=== PATIENT | male | born 1995 | race Two or more races ===

== ENCOUNTER 2017-11-13 00:01 | Inpatient (IN) | payer OTHER ==
[~2017-11-13] VITALS: Ht 188 cm; Wt 83.9 kg
[2017-11-13 00:13] VITALS: BP 140/74
--- NOTE | 2017-11-13 00:31 | NUR ---
PRE-ADMISSION VS BP-140/74 T-98.0 P-87 R- 15 PA-0/10 . SpO2 AT 99% IN RA. PATIENT CAME IN WITH THE FATHER . PATIENT NOTED SEDATED, DOZES OFF DURING QUESTIONING, SPEECH IS SLURRED AND DELAYED IN RESPONSE. HE DOES NOT HAVE ALLERGIES TO MEDICATION OR FOOD. PATIENT CAME IN THE UNIT AT 0031 IN A WHEELCHAIR. BODY CHECK DONE, SKIN INTACT. HEIGHT IS 6'2 AND 185 LBS. PATIENT STATES HE'S HERE FOR BENZODIAZEPINES. HE USES KLONOPIN 9 MG DAILY FOR 5 WEEKS , LAST USE 12 MG ON 11/12/17 AND XANAX 10MG OR MORE DAILY FOR 5 WEEKS. LAST USE WAS 10-20 MG PRIOR TO ADMISSION . HE HAS SEIZURE HISTORY-LAST ONE WAS 2 YEARS AGO DUE TO BENZO WITHDRAWAL. PATIENT SOMNOLENT AND UNABLE TO PROVIDE ACCURATE INFORMATION AT THIS TIME. WILL ASSESS PATIENT WHEN ALERT AND ORIENTED. SAFETY MEASURES IN PLACE. CALL LIGHT IN REACH. ON 1:1 FOR SAFETY .
[2017-11-13] MEDS ORDERED: MAGNESIUM HYDROXIDE 30 ML LIQUID UDC PO PRN (00:45)
[2017-11-13] MEDS ORDERED: ONDANSETRON ODT 4 MG TAB.RAPDIS SL PRN (00:45)
[2017-11-13] MEDS ORDERED: MAG HYDROX/AL HYDROX/SIMETH 30 ML LIQUID UDC PO PRN (00:45)
[2017-11-13] MEDS ORDERED: ACETAMINOPHEN 325 MG TABLET PO PRN (00:45)
[2017-11-13] MEDS ORDERED: LORAZEPAM 2 MG/1 ML VIAL IM PRN (00:45)
[2017-11-13] MEDS ORDERED: LOPERAMIDE HCL 2 MG CAPSULE PO PRN ×2 (00:45)
[2017-11-13] MEDS ORDERED: DIAZEPAM 10 MG TABLET PO PRN (00:45)
[2017-11-13] MEDS ORDERED: diphenhydrAMINE 50 MG CAPSULE PO PRN (00:45)
[2017-11-13] MEDS ORDERED: CLONIDINE HCL 0.1 MG TABLET PO PRN (00:45)
[2017-11-13] MEDS ORDERED: DIAZEPAM 5 MG TABLET PO PRN (00:45)
[2017-11-13] MEDS ORDERED: ONDANSETRON 4 MG/2 ML VIAL IM PRN (00:45)
[2017-11-13] MEDS ORDERED: DICYCLOMINE HCL 20 MG TABLET PO PRN (00:45)
[2017-11-13 01:45] LABS: *AMPHETAMINE, URINE NEGATIVE (NEGATIVE); *BARBITURATE, URINE POSITIVE (NEGATIVE); *CANNABINOID, URINE NEGATIVE (NEGATIVE); *COCCAINE, URINE POSITIVE (NEGATIVE); *OPIATE, URINE POSITIVE (NEGATIVE); *PHENCYCLIDINE SCREEN,URINE NEGATIVE (NEGATIVE)
[2017-11-13 04:00] VITALS: BP 122/65
[2017-11-13] MEDS: DIAZEPAM 10 MG TABLET PO PRN ×2 (06:13→09:21)
[2017-11-13] MEDS: IBUPROFEN 600 MG TABLET PO PRN (06:13)
--- NOTE | 2017-11-13 06:13 | NUR ---
PRN VALIUM/MOTRIN ADMINISTRATION PATIENT WOKE AND STATES HE DOES NOT FEEL GOOD, PATIENT MODERATELY ANXIOUS, IRRITABLE, SWEATING, FINE TREMORS NOTED, AGITATED , RESTLESS LEGS AND MUSCLE ACHES . WILL MONITOR FOR EFFECTIVENESS Addendum: 11/13/17 at 0629 by MIGUEL ARCOS LVN CICI Cazares.
--- NOTE | 2017-11-13 07:13 | NUR ---
PRN VALIUM/MOTRIN RE-ASSESSMENT PATIENT IN BED WITH EYES CLOSED. ON 1:1 FOR SAFETY. WILL CONTINUE TO MONITOR
--- NOTE | 2017-11-13 07:27 | NUR ---
END OF SHIFT NOTE PATIENT SLEPT 5 HOURS. FLUID INTAKE 30ML. VOIDED X 2 .NO BM. LAST CIWA 11. PATIENT WAS GIVEN PRN VALIUM AND MOTRIN. PATIENT WOKE UP AND STATED HE DOES NOT FEEL GOOD, PATIENT MODERATELY ANXIOUS, IRRITABLE, SWEATING, FINE TREMORS NOTED, AGITATED , RESTLESS LEGS AND MUSCLE ACHES. PATIENT RE-ASSESSED TO CONTINUE ADMISSION PROCESS BUT STATES HE WANTS TO GO BACK TO SLEEP. PATIENT WAS ASKED REGARDING URINE DRUG SCREEN BEING POSITIVE OF OPIATES, BARBITURATES AND COCAINE BUT PATIENT DENIES USING THESE SUBSTANCES, HE STATES HE ONLY USED KLONOPIN AND XANAX. CONTINUE ON 1:1 FOR SAFETY. SAFETY MEASURES IN PLACE. CALL LIGHT IN REACH. WILL CONTINUE TO MONITOR. LAST CI.
[2017-11-13 08:00] VITALS: BP 112/70
[2017-11-13] MEDS: MULTIVITAMINS,THERAPEUTIC TABLET PO SCH (09:21)
[2017-11-13] MEDS: FOLIC ACID 1 MG TABLET PO SCH (09:21)
--- NOTE | 2017-11-13 09:21 | NUR ---
PRN VALIUM Patient's CIWA was 13. PRN valium 10mg po tab given. Will continue to monitr patient.
--- NOTE | 2017-11-13 09:21 | NUR ---
START OF SHIFT Received report from power and recovery shift engineer nurse. Patient is 22 year old male admitted for medically supervised withdrawal from heroin and alprazolam. Patient is full code with NKA. On assessment this AM: CIWA 13 and COWS: 12. Denies SOB, chest pain. Patient reports anxiety, noted agitation, nausea, tremors, sweating. PRN valium given (CIWA 13). Patient was provided with campus safety officer upon arrival on the haddad on previous shift for safety unsteady gait for further evaluation this shift. Admission interview was done with patient.
--- NOTE | 2017-11-13 10:21 | NUR ---
REASSESSMENT PRN VALIUM Patient's CIWA 9.
[2017-11-13] MEDS ORDERED: NICOTINE POLACRILEX 4 MG GUM-PK OF TEN BC PRN (10:30)
[2017-11-13] MEDS ORDERED: NICOTINE 14 MG/24HR PATCH TD PRN (10:30)
[2017-11-13] MEDS ORDERED: BUPRENORPHINE HCL 2 MG TAB.SUBL SL PRN (11:00)
--- NOTE | 2017-11-13 11:00 | NUR ---
ADMISSION NOTE: Patient is 22yo male admitted for supervised heroin and alprazolam withdrawal. Alert and oriented X4, full code, with NKA. Denies SOB and chest pain. Patient reports history of bipolar history, last seizure was 2 years ago. oil house attendant at bedside for unsteady gait. Denies suicidal and homicidal ideation. CIWA = 13 and COWS 12. Patient reports symptoms such as anxiety, agitation, tremors, nausea and sweating. Patient has no PCP at this time. Substance use history per patient report: 1) Klonopin - pt. reports last use was 11/12/17, used 9mgs, for 5 weeks 2) Xanax - pt. reports last use was 11/12/17, used 10 10-20mg, for 5 weeks 3) Heroin (IV) pt. reports last use was 11/12/17, used 1-2g, for 5 weeks 4) Meth (IV) pt. reports last use was 11/12/17, used 0.5g, for 5 weeks
[2017-11-13] MEDS: DIAZEPAM 10 MG TABLET PO SCH ×4 (11:10→20:12)
[2017-11-13 12:00] VITALS: BP 110/66
[2017-11-13 12:22] LABS: ETHANOL < 3 MG/DL (0-0)
[2017-11-13 12:23] LABS: ALANINE AMINOTRANSFERASE 33 U/L (16-63); ALKALINE PHOSPHATASE 65 U/L (50-136); AMYLASE 29 U/L (25-115); ASPARTATE AMINOTRANSFERASE 41 U/L (15-37); BILIRUBIN,TOTAL 0.4 mg/dL (0.2-1.0); CARBON DIOXIDE 25 mmol/L (21-32); CHLORIDE 105 mmol/L (98-107); GLUCOSE 82 mg/dL (74-106); LIPASE 86 U/L (73-393); MAGNESIUM 1.9 mg/dL (1.8-2.4); POTASSIUM 3.6 mmol/L (3.5-5.1); UREA NITROGEN, BLOOD 8 mg/dL (7-18)
[2017-11-13 12:23] LABS: BASOPHILS % (AUTO) 0.3 % (0.0-2.0); HEMATOCRIT 37.8 % (36.7-47.1); HEMOGLOBIN 12.9 g/dL (12.5-16.3); LYMPHOCYTES # (AUTO) 1.6 K/uL (20.0-40.0); LYMPHOCYTES % (AUTO) 34.7 % (20.5-51.5); MEAN CORPUSCULAR HEMOGLOBIN 27.4 uug (23.8-33.4); MEAN CORPUSCULAR HGB CONC 34 g/dL (32.5-36.3); MEAN CORPUSCULAR VOLUME 80.3 fL (73.0-96.2); MONOCYTES # (AUTO) 0.3 K/uL (2.0-10.0); MONOCYTES % (AUTO) 6.8 % (0.0-11.0); NEUTROPHILS # (AUTO) 2.7 K/uL (1.8-8.9); NEUTROPHILS % (AUTO) 57.2 % (38.5-71.5); PLATELET COUNT (AUTO) 237 K/uL (152-348); RED BLOOD CELL COUNT(AUTO) 4.71 MIL/uL (4.06-5.63); WHITE BLOOD COUNT (AUTO) 4.7 K/uL (3.6-10.2)
[2017-11-13 12:33] LABS: THYROID STIMULATING HORMONE 0.105 mIU/mL (0.358-3.740)
[2017-11-13] MEDS: BUPRENORPHINE HCL 2 MG TAB.SUBL SL SCH ×3 (14:54→20:13)
[2017-11-13 16:00] VITALS: BP 117/63
--- NOTE | 2017-11-13 19:13 | NUR ---
START OF SHIFT NOTE: Patient is a 22 year old male, admitted to [facility] on 11/13/2017 for Benzodiazepines, Opioid, and Methamphetamines dependence. Patient continue 5 Day Valium and 5 Day Subutex Taper which tolerated well without ASE. Patient remains compliant with treatment, medications, and diet regime. Patient reports NKA. Patient is on Full code, Regular Diet, Fall and Seizures Precautions. PMH: Anxiety, Depression, Bipolar Disorder, Seizures History, Surgery on" Elbow and fingers". MRSA done and sent to lab by day shift nurse. Upon endorsement, patient is in his room resting on the bed alert and oriented x4. VSWNL. COWS 14, CIWA 27. Patient presented with moderate anxiety, moderately fidgety, agitation, nervousness, depression, sweating, runny nose, teary eyes, and severe tremors. Doctor MD Serenity aware. Respirations are even and unlabored. Lung Sounds are clear throughout. Patient denied SOB and chest pain. Heart rate is regular, no murmur noted. Bowel Sounds are active in all four quadrants. Abdomen is soft and non-tender. Skin is intact, warm, and dry to touch. All needs met. Safety measures on place. Call light within reach, bed in lowest position and locked, padded rails up bilaterally rails up bilaterally. Patient endorsed by day shift nurse. Report received. Will continue to monitor closely.
--- NOTE | 2017-11-13 19:13 | NUR ---
END OF SHIFT Patient is 22 year old male admitted for medically supervised withdrawal from heroin and alprazolam. Patient is full code with NKA. Patient on Valium and Subutex taper which were started today. Most recent CIWA: 12 and COWS: 9. Patients vitals signs WNL. Patient reports anxiety, tremors, stuffy nose, chills, body aches, tactile disturbances and mild nausea. Compliant with meds this shift. PRN Valium 10mg po given at 09:21am for CIWA 13, recheck was 9. Patient was too sleepy for the 13:00pm valium and Subutex doses, MD aware. Patient agreed to take it 14:54pm. Patient has poor appetite, refuses his meals, prefers to eat snacks at this time. night warehouse selectornight warehouse selector will continue to monitor patient.
[2017-11-13 20:00] VITALS: BP 115/61
[2017-11-13] MEDS: QUETIAPINE FUMARATE 200 MG TABLET PO SCH (20:12)
[2017-11-13] MEDS: GABAPENTIN 300 MG CAPSULE PO SCH (20:12)
[2017-11-13] MEDS ORDERED: KETOROLAC TROMETHAMINE 30 MG INJ IM PRN (20:45)
--- NOTE | 2017-11-13 20:51 | NUR ---
PRN VALIUM 20 MG PO ADMINISTRATION CIWA 27. PRN Valium 20 mg PO administrated as ordered. Patient tolerated well. All needs met. Safety measures on place. Call light within reach, bed in lowest position and locked, padded rails up bilaterally rails up bilaterally. Will continue to monitor closely.
--- NOTE | 2017-11-13 20:51 | NUR ---
MD Communication CIWA 27, Pt is very restless, skin flushed & noted with sweat, frequently shifting in bed, emotional with reports of body aches 07/22. MD notified, with new orders given. Toradol 30mg injection administered, along with Valium 20mg PRN - medications administered per MD orders. Will continue to monitor.
--- NOTE | 2017-11-13 21:19 | NUR ---
PRN TORADOL 30 MG/1 ML IM ADMINISTRATION Patient c/o left arm pain "9/10"and asked aid. PRN Toradol Inj 30 mg/1 ml IM on the Left Deltoid Muscle administrated as ordered. Patient tolerated well. All needs met. Safety measures on place. Call light within reach, bed in lowest position and locked, padded rails up bilaterally rails up bilaterally. Will continue to monitor closely.
--- NOTE | 2017-11-13 21:51 | NUR ---
RE-ASSESSMENT CIWA 9. PRN VALIUM PO AND PRN TORADOL IM WERE EFFECTIVE.
[2017-11-14] VITALS: BP 106/59
[2017-11-14 04:00] VITALS: BP 105/64
--- NOTE | 2017-11-14 07:02 | NUR ---
END OF SHIFT NOTE: Patient is a 22 year old male, admitted to [facility] on 11/13/2017 for Benzodiazepines, Opioid, and Methamphetamines dependence. Patient continue 5 Day Valium and 5 Day Subutex Taper which tolerated well without ASE. Patient remains compliant with treatment, medications, and diet regime. Patient reports NKA. Patient is on Full code, Regular Diet, Fall and Seizures Precautions. PMH: Anxiety, Depression, Bipolar Disorder, Seizures History, Surgery on" Elbow and fingers". Last COWS 7, CIWA 8 @0400. Patient presented with mild anxiety, agitation, nervousness, restlessness, barely sweating, BODY ACHES, nasal stuffy/moist eyes, and tremors. COWS/CIWA taken when patient's awake during night. Last VS @0400: T:98.1, BP: 105/64, HR:60, RR:16, RA O2Sat:99%, pain level:"0/10". Patient denies SI/HI. Respirations unlabored and even. Skin is intact, warm and dry to touch. PRN Valium 20 mg PO for CIWA 27 administrated @2151 and PRN Toradol IM for pain administrated @2119 were effective. Patient slept 7 hours, intake 1,450 ml, voided x3. Encouraged fluids intake as tolerated. Encouraged to attend groups activities. Safety measures in place: Call Light in reach, bed low, and locked, padded side rails up bilaterally. Needs attended. Patient endorsed to day shift nurse, report given.
--- NOTE | 2017-11-14 07:45 | NUR ---
START OF SHIFT PT IS A 22Y/O M ADMITTED FOR MEDICALLY SUPERVISED BENZO, OPIATE, METH W/D. PT RECEIVED PT LAYING IN BED SLEEPING, RESPIRATIONS EVEN AND UNLABORED. SIDE RAILS UPX2 AND PADDED. ALL SAFETY MEASURES IN PLACE. CALL LIGHT WITHIN REACH. WILL CONTINUE TO MONITOR.
[2017-11-14 08:00] VITALS: BP 93/43
[2017-11-14] MEDS ORDERED: TUBERCULIN,PURIF.PROT.DERIV. 5 TU/0.1 ML TEST ID ONE (09:00)
[2017-11-14] MEDS ORDERED: DIAZEPAM 10 MG TABLET PO SCH (09:00)
[2017-11-14] MEDS: MULTIVITAMINS,THERAPEUTIC TABLET PO SCH (09:29)
[2017-11-14] MEDS: FOLIC ACID 1 MG TABLET PO SCH (09:29)
[2017-11-14] MEDS: GABAPENTIN 300 MG CAPSULE PO SCH ×3 (09:29→21:35)
--- NOTE | 2017-11-14 09:30 | NUR ---
PT IS AWAKE, ORIENTED X3, RESPIRATIONS EVEN AND UNLABORED. PT REPORTS HAVING CHILLS, SWEATING, ANXIETY, GENERALIZED BODY ACHES STOMACH CRAMPS AND RESTLESSNESS. PT HAS A FLAT EFFECT, APPEARS ANXIOUS, DEPRESSED. TREMORS AND PILOERECTION OF SKIN SEEN. DENIES N/V/D. COWS 12 CIWA 8.
[2017-11-14] MEDS: BUPRENORPHINE HCL 2 MG TAB.SUBL SL SCH ×3 (09:35→21:36)
[2017-11-14 12:00] VITALS: BP 108/66
[2017-11-14 12:09] LABS: HEPATITIS B SURFACE AG Negative (Negative)
[2017-11-14] MEDS: METHOCARBAMOL 750 MG TABLET PO PRN (12:25)
--- NOTE | 2017-11-14 12:25 | NUR ---
PRN ROBAXIN 750 MG PO PRN GIVEN FOR CRAMPS AND GENERALIZED BODY ACHES 8/10 PAIN. WILL CONTINUE TO MONITOR.
[2017-11-14] MEDS: DIAZEPAM 10 MG TABLET PO SCH ×3 (12:26→21:34)
--- NOTE | 2017-11-14 13:10 | NUR ---
PRN ZOFRAN 4 MG SL PRN GIVEN FOR NAUSEA. WILL MONITOR FOR EFFECTIVENESS.
--- NOTE | 2017-11-14 13:25 | NUR ---
REASSESSMENT PT REPORTED MEDICATION WAS EFFECTIVE FOR MUSCLE CRAMPS AND BODY ACHES. WILL CONTINUE TO MONITOR.
--- NOTE | 2017-11-14 13:40 | NUR ---
REASSESSMENT PT REPORTED ZOFRAN WAS EFFECTIVE FOR HIS NAUSEA AND HAS CEASED. WILL CONTINUE TO MONITOR.
[2017-11-14 16:00] VITALS: BP 119/77
--- NOTE | 2017-11-14 17:02 | NUR ---
Client was prompted by therapist to attend daily group sessions. Client stated that he would attend the next group.
--- NOTE | 2017-11-14 18:52 | NUR ---
END OF SHIFT PT IS A/O X4, RESPIRATIONS EVEN AND UNLABORED. PT HAS A FLAT EFFECT, APPEARS ANXIOUS, DEPRESSED, AND WITHDRAWN. PT REPORTS HAVING CHILLS, SWEATING, HOT FLASHES, ANXIETY, GENERALIZED BODY ACHES, NAUSEA, STOMACH CRAMPS AND RESTLESSNESS. PT REPORTS HAVING AUDITORY HALLUCINATIONS; PT STATES, I HEAR SWOOSHING NOISES AND SCRATCHING SOUNDS. TREMORS AND PILOERECTION OF SKIN SEEN. DENIES N/V/D. COWS 8 CIWA 7 AT 1600. ENCOURAGED PT TO INCREASE FLUIDS FOR HYDRATION. SIDE RAILS UPX2, BED IS IN LOWEST POSITION. CALL LIGHT WITHIN REACH. ALLSAFETY MEASURES IN PLACE. WILL GIVE ALL PERTINENT INFO AND ENDORSEMENT TO SLIDE FASTENERS INSPECTOR NURSE.
--- NOTE | 2017-11-14 19:15 | NUR ---
START OF SHIFT Received 22 year old male patient admitted on 11/13/17 for Klonopin, Xanax, Heroin IV and Meth IV dependency. Pt is full code with NKA. He reports a PMHx of seizure 2 years ago d/t benzo withdrawal. Surgery on elbow and fingers, bipolar and hep C +. He reports using Klonopin 9 mg daily for 5 weeks. Last dose was 12 mg on 11/12/17. Xanax 10 mg daily for 5 weeks. Last dose 10-20 mg on 11/12/17. Heroin IV 1-2 grams daily for 5 weeks. Last dose was 1-2 grams on 11/12/17. and Meth IV 0.5 grams daily for 5 weeks. Last dose was 0.5 gram on 11/12/17. Pt currently receiving 5 day Valium and 5 day Subutex taper and tolerating well. Per endorsement, pt received PRN Robaxin and Zofran. Pt currently in room sleeping but able to respond to nurses greeting. Safety measures in place. Will continue to monitor.
[2017-11-14 20:00] VITALS: BP 113/72
[2017-11-14] MEDS: CLONIDINE HCL 0.1 MG TABLET PO SCH (21:34)
[2017-11-14] MEDS: QUETIAPINE FUMARATE 200 MG TABLET PO SCH (21:34)
[2017-11-14] MEDS: BACLOFEN 10 MG TABLET PO SCH (21:35)
[2017-11-15] VITALS: BP 120/68
[2017-11-15 04:00] VITALS: BP 108/62
--- NOTE | 2017-11-15 07:00 | NUR ---
END OF SHIFT Pt is lying in bed with eyes closed and is asleep. He continues on a 5 day Valium and 5 day Subutex taper. He did not receive or request any PRN medications. He slept a total of 9hrs, Intake: 793mL, Void: x1, BM:0, COWS:6, CIWA:5. He continues to be alert and oriented x4 with no significant changes. Breathing is even and unlabored. Safety measures in place. Endorsed to AM shift.
--- NOTE | 2017-11-15 07:29 | NUR ---
Start of shift note; Received report from night nurse. Patient is a 22 year old male admitted on 11/13/17 for Benzodiazepine/ Opiate/Methamphetamine. Patient reported history of seizures d/t benzodiazepine withdrawals, surgery, bipolar disorder and hepatitis C. Patient is on 5 day Valium and 5 day Subutex taper, no adverse reactions. All safety measures secured. Patient had uneventful night. Will continue to monitor patient.
[2017-11-15 08:00] VITALS: BP 98/63
[2017-11-15] MEDS: FOLIC ACID 1 MG TABLET PO SCH (08:56)
[2017-11-15] MEDS: GABAPENTIN 300 MG CAPSULE PO SCH ×3 (08:56→22:15)
[2017-11-15] MEDS: MULTIVITAMINS,THERAPEUTIC TABLET PO SCH (08:56)
[2017-11-15] MEDS: BACLOFEN 10 MG TABLET PO SCH ×2 (08:56→22:15)
[2017-11-15] MEDS: DIAZEPAM 10 MG TABLET PO SCH ×3 (08:56→22:15)
[2017-11-15] MEDS: CLONIDINE HCL 0.1 MG TABLET PO SCH ×2 (08:57→21:00)
[2017-11-15] MEDS ORDERED: BUPRENORPHINE HCL 2 MG TAB.SUBL SL SCH (09:00)
[2017-11-15] MEDS ORDERED: DIAZEPAM 5 MG TABLET PO SCH (09:00)
[2017-11-15] MEDS ORDERED: HYDROXYZINE PAMOATE 25 MG CAPSULE PO PRN (09:00)
--- NOTE | 2017-11-15 09:35 | NUR ---
Report given; Detailed report given to covering nurse. Patient is AOX4, last COWS is 8 and last CIWA is 5 at 0800. All morning medications given as ordered. All safety measures secured. Endorsed patient to covering nurse.
--- NOTE | 2017-11-15 09:36 | NUR ---
Endorsement of Patient Security Systems Installer received report/endorsement on 22 year old male admitted to [facility] on 11/13/17 for Benzodiazepine, Heroin and Methamphetamine detoxification. Pt reports NKDA, full code and eats a regular diet. Pt reports PMH of Hep C, bipolar and a withdrawal related seizure 2 years ago. Pt currently on a Valium and Subutex taper, tolerating well. Last COWS 8, CIWA 5 as per report. Pt was negative for MRSA. No PRN medication provided. Security Systems Installer encounters pt in room resting with eyes closed and even, unlabored respirations. Rise and fall of chest noted. Bed in low position, wheels locked and side rails up x2. Will continue to monitor, support and encourage according to plan of care.
[2017-11-15 12:13] VITALS: BP 100/54
[2017-11-15] MEDS: BUPRENORPHINE HCL 2 MG TAB.SUBL SL SCH ×2 (15:33→22:15)
[2017-11-15] MEDS: MIRALAX 17 GM POWD.PACK PO PRN (16:44)
[2017-11-15 16:45] VITALS: BP 117/69
--- NOTE | 2017-11-15 16:45 | NUR ---
PRN Miralax Pt complains of constipation, with no bowel movement in 3 days, " it's that damn Subutex, clogged me up." Admission Discharge Rn administered medication per MD order with pt tolerating well. Pt educated on need to keep staff aware of bowel movements. Will continue to monitor, support and encourage according to plan of care.
--- NOTE | 2017-11-15 17:45 | NUR ---
PRN Re-Assessment Pt reports, no BM. Pt educated on importance of keeping staff aware of BM and need for continued monitoring. Will continue to monitor, support and encourage according to plan of care.
--- NOTE | 2017-11-15 19:08 | NUR ---
End of Shift Human Projectile provided report on 22 year old male admitted to [facility] on 11/13/17 for Benzodiazepine, Heroin and Methamphetamine detoxification. Pt reports NKDA, full code and eats a regular diet. Pt reports PMH of bipolar and a withdrawal related seizure 2 years ago. Pt has tested positive for Hep C anti-bodies, awaiting further testing. Pt concerned he may have Hep C. Pt currently on a Valium and Subutex taper, tolerating well. Last COWS 5, CIWA 4 recorded at 1600. Pt was negative for MRSA. Pt was administered Miralax at 1630 for complaints of constipation with no BM for 3 days. Pt is bright and social with peers and staff. Makes needs known and can be direct, assertive, but polite and pleasant with functional tester typewriters. A/O x4. Bed in low position, wheels locked and side rails up x2.
--- NOTE | 2017-11-15 19:11 | NUR ---
Start of shift note Received report from day shift nurse. Pt is a 22 yo male, A+Ox4, presenting to [facility] for Benzo/Opiate/Meth dependence. Pt has NKA, is on Full code status, and on Regular diet. Pt is on Fall and Seizure precautions. Pt has HX of Seizure, Hep C, Elbow and fingers SX's, and Bipolar disorder. Pt is on 5 day Valium and 5 day Subutex tapers, tolerated well. No s/s of distress noted at this time. Respirations even and unlabored. Will continue to monitor.
[2017-11-15 20:18] VITALS: BP 136/78
[2017-11-15] MEDS: QUETIAPINE FUMARATE 200 MG TABLET PO SCH (22:14)
[2017-11-16 00:25] VITALS: BP 130/74
[2017-11-16 04:39] VITALS: BP 124/72
--- NOTE | 2017-11-16 06:56 | NUR ---
End of shift note Pt is a 22 yo male, A+Ox4, presenting to [facility] for Benzo/Opiate/Meth dependence. Pt has NKA, is on Full code status, and on Regular diet. Pt is on Fall and Seizure precautions. Pt has HX of Seizure, Hep C, Elbow and fingers SX's, and Bipolar disorder. Pt is on 5 day Valium and 5 day Subutex tapers, tolerated well. Pt slept for a total of 7 HRS. Last COWS: 3 and Last CIWA: 2 @0400. No s/s of distress noted at this time. Respirations even and unlabored. Will endorse to day shift nurse.
--- NOTE | 2017-11-16 07:26 | NUR ---
Start of shift- Pt is a 22 y/o male presenting to [facility] for Benzo/Opiate/Meth dependence. No s/s of distress noted at this time. Pt appears to be sleeping in bed. Respirations even and unlabored. Pt slept 7 hours last night. At 0400 last COWS 3, CIWA 2. NKA, Full code and Regular diet. Pt is on Fall and Seizure precautions. Pt has HX of Seizure, Hep C, Elbow and fingers SX's, and Bipolar disorder. MRSA lab negative. Pt is on 5 day Valium and 5 day Subutex tapers started on 11/13/17, tolerating well. Safety measures in place. Will continue to monitor.
[2017-11-16 08:00] VITALS: BP 104/54
[2017-11-16] MEDS: GABAPENTIN 300 MG CAPSULE PO SCH ×3 (09:41→20:16)
[2017-11-16] MEDS: CLONIDINE HCL 0.1 MG TABLET PO SCH ×2 (09:42→20:14)
[2017-11-16] MEDS: BACLOFEN 10 MG TABLET PO SCH ×2 (09:43→20:14)
[2017-11-16] MEDS: DIAZEPAM 5 MG TABLET PO SCH ×3 (09:43→20:15)
[2017-11-16] MEDS: FOLIC ACID 1 MG TABLET PO SCH (09:43)
[2017-11-16] MEDS: MULTIVITAMINS,THERAPEUTIC TABLET PO SCH (09:43)
[2017-11-16] MEDS: MIRALAX 17 GM POWD.PACK PO PRN (09:43)
[2017-11-16] MEDS: BUPRENORPHINE HCL 2 MG TAB.SUBL SL SCH ×3 (09:43→20:15)
--- NOTE | 2017-11-16 09:48 | NUR ---
PRN Miralax 17 gm PO for constipation.
--- NOTE | 2017-11-16 09:56 | NUR ---
Therapist prompted client about group times. Client stated he would try to attend all groups today.
[2017-11-16 12:00] VITALS: BP 122/80
[2017-11-16] MEDS: METHOCARBAMOL 750 MG TABLET PO PRN (12:58)
--- NOTE | 2017-11-16 12:59 | NUR ---
PRN Catapres 0.1mg PO for anxiety, Robaxin 750 mg po for myalgias. COWS 8, CIWA 9
--- NOTE | 2017-11-16 14:00 | NUR ---
Reasses- Pt reports minimal anxiety relief from Catapres. Myalgia relief from Baclofen, and Pt states he is feeling a little better. [facility] 7, CIWA7. Addendum: 11/16/17 at 1808 by Shira Shipley RN Myalgia relief from Robaxin, not Baclofen. at 1400
--- NOTE | 2017-11-16 15:45 | NUR ---
Alfreda Lawton, Pt had BM, soft, formed brown.
[2017-11-16 16:00] VITALS: BP 147/82
--- NOTE | 2017-11-16 18:39 | NUR ---
End of shift note- Pt is a 22 y/o male presenting to [facility] for Benzo/Opiate/Meth dependence. Pt A&O x4. Pt on 5 day Valium and Subutex taper, started on 11/13/17, tolerating well. PRN Robaxin and Catapres given at 1200 with minimal effect. TB test read and was negative. At 1600 last COWS 5, CIWA 4. NKA, Full code and Regular diet. Pt is on Fall and Seizure precautions. Pt has HX of Seizure, Hep C, Elbow and fingers SX's, and Bipolar disorder. Adequate PO fluid intake of 3843 ml, voids X 4, BM X1. Safety measures in place. Safety measures in place. Bed lowest/locked position, side rails up X2/padded, call light within reach. Will endorse to oncoming nurse.
[2017-11-16 20:01] VITALS: BP 125/64
--- NOTE | 2017-11-16 20:05 | NUR ---
Start of Shift: A/O x4 gait is stable lying on bed watching tv CIWA 6 COW 8 c/o itching, tremors, joint pain and rhinorrhea. Given prn Ibuprofen for 5-10 joint pain. On Day 4-5 Valium & Subutex tamper. Continue to mointor for sz's, falls and safety. Medication compliant, visable on unit and cooperative with staff.
[2017-11-16] MEDS: QUETIAPINE FUMARATE 200 MG TABLET PO SCH (20:15)
[2017-11-16] MEDS: IBUPROFEN 600 MG TABLET PO PRN (20:16)
--- NOTE | 2017-11-16 21:40 | NUR ---
Follow up prn ibuprofen effective 2-10 joint pain.
--- NOTE | 2017-11-16 22:44 | NUR ---
pt lying on bed in room watching Tv denies of any distress. Endorsed care to Ramana. Addendum: 11/16/17 at 2248 by Robin Petit LVN Endorsed Care to JAENIE Sam
--- NOTE | 2017-11-16 22:45 | NUR ---
RESUMED CARE Received endorsement. Pt in room, lying comfortably in bed watching TV. Safety measures in place. Will continue to monitor.
[2017-11-17] VITALS: BP 120/62
--- NOTE | 2017-11-17 04:00 | NUR ---
VITALS REFUSED, COWS/CIWA DEFERRED 0400 vitals refused. COWS and CIWA deferred d/t pt lying in bed with eyes closed noted to be asleep. Safety measures in place. Will continue to monitor.
--- NOTE | 2017-11-17 06:18 | NUR ---
REFUSED LABS Pt refused 0600 labs. Will endorse to AM shift.
--- NOTE | 2017-11-17 07:08 | NUR ---
END OF SHIFT Pt is lying in bed with eyes closed and is noted to be asleep. He complained of headache and received PRN Motrin for pain. He continues on 5 day Valium and 5 day Subutex taper. He is currently on day 02/14 and tolerating well. He slept a total of 6 hrs, Intake:1834 mL, Void:x3, BM:0, COWS: 8, CIWA:6. Pt remains alert and oriented x4, breathing even and unlabored. Safety measures in place. Will endorse to AM shift.
--- NOTE | 2017-11-17 07:15 | NUR ---
Start Of Shift Received report from assistant shift supervisor nurse. Pt is a 22 year old male admitted on 11/13/17 for ETOH , Benzo and meth dependency. Pt is full code reports no allergies. PMHx of seizures last one 2 years ago, Bipolar and Hep C+. Pt is on his last day of the 5 day Valium and Subutex taper, his last CIWA was a 6 and last COWS was a 8 at 0400. Pt is alert and orientedX4 Ambulatory. Pt received PRN Motrin which was effective. Pt encouraged to drink plenty of fluids to help facilitate the detox process. All safety measures in place, call light within reach, bed in lowest locked position. Will continue to monitor pt and provide care.
[2017-11-17 08:00] VITALS: BP 100/59
[2017-11-17] MEDS: GABAPENTIN 300 MG CAPSULE PO SCH ×3 (09:29→21:05)
[2017-11-17] MEDS: BUPRENORPHINE HCL 2 MG TAB.SUBL SL SCH ×2 (09:29→21:10)
[2017-11-17] MEDS: DIAZEPAM 5 MG TABLET PO SCH ×2 (09:29→21:06)
[2017-11-17] MEDS: MULTIVITAMINS,THERAPEUTIC TABLET PO SCH (09:29)
[2017-11-17] MEDS: BACLOFEN 10 MG TABLET PO SCH ×2 (09:30→21:06)
[2017-11-17] MEDS: FOLIC ACID 1 MG TABLET PO SCH (09:30)
[2017-11-17] MEDS: CLONIDINE HCL 0.1 MG TABLET PO SCH ×2 (09:30→21:10)
--- NOTE | 2017-11-17 09:44 | NUR ---
Therapist prompted client about group times. Client stated he would attend all groups today.
[2017-11-17 12:00] VITALS: BP 124/88
[2017-11-17] MEDS: MIRALAX 17 GM POWD.PACK PO PRN (15:31)
[2017-11-17 16:00] VITALS: BP 143/96
--- NOTE | 2017-11-17 19:01 | NUR ---
End Of Shift Pt is a 22 year old male admitted on 11/13/17 for ETOH , Benzo and meth dependency. Pt is full code reports no allergies. PMHx of seizures last one 2 years ago, Bipolar and Hep C+. Pt is on his last day of the 5 day Valium and 5 day Subutex taper, VS monitored closely q 4 hours. Withdrawal symptoms were closely monitored. Initial COWS 6 CIWA 6. Patient encouraged adequate PO fluid intake as tolerated. Patient presented with tremors and anxiety during the day. Last COWS 4 CIWA 5. Per patient, Subutex and Valium have been helping him with his withdrawal symptoms. Pt ate all of his meals. No Pt received PRN miralax endorsed to caustic cresylate shift superintendent to ask about BM. Patient encouraged to attend group therapies/sessions to learn new coping skills to recent relapse, patient denies SI/HI. Participated in group and therapy sessions. All needs met and attended
[2017-11-17 20:00] VITALS: BP 132/64
--- NOTE | 2017-11-17 20:00 | NUR ---
START OF SHIFT NOTE RECEIVED REPORT FROM DAY SHIFT NURSE. PATIENT IS A 22 YEAR OLD MALE ADMITTED FOR BENZO/OPIATE AND METH DEPENDENCE. PATIENT IS ON 5TH DAY OF VALIUM AND SUBUTEX TAPER, TOLERATED WELL AND NO ADVERSE REACTION. PATIENT REPORTS PMH OF BIPOLAR, HEP C +, SURGERY ON LEFT ELBOW AND FINGERS AND SEIZURE (LAST ONE WAS 2 YEARS AGO D/T BENZO W/D. SKIN INTACT. PATIENT WAS GIVEN PRN MIRALAX. LAST COWS 4 AND CIWA 5. RECEIVED PATIENT ALERT AND ORIENTED X 4. RESPIRATION EVEN AND UNLABORED. PATIENT REPORTS ANXIETY, SWEATING, STUFFY NOSE , ABDOMINAL CRAMPING, NO N/V, DENIES ANY PAIN AT THIS TIME. ON FALL/SEIZURE PRECAUTION. WILL CONTINUE TO MONITOR.
[2017-11-17] MEDS: QUETIAPINE FUMARATE 200 MG TABLET PO SCH (21:06)
--- NOTE | 2017-11-17 23:35 | NUR ---
PRN MOM ADMINISTRATION PATIENT REQUESTS FOR MOM ,ENCOURAGE FLUIDS. WILL MONITOR FOR EFFECTIVENESS
--- NOTE | 2017-11-18 | NUR ---
COWS AND CIWA DEFERRED PATIENT REFUSED VS. RESPIRATION EVEN AND UNLABORED. SAFETY MEASURES IN PLACE. CALL LIGHT IN REACH. WILL CONTINUE TO MONITOR
--- NOTE | 2017-11-18 04:00 | NUR ---
COWS AND CIWA DEFERRED PATIENT REFUSED VS. RESPIRATION EVEN AND UNLABORED. SAFETY MEASURES IN PLACE. CALL LIGHT IN REACH. WILL CONTINUE TO MONITOR
--- NOTE | 2017-11-18 07:24 | NUR ---
END OF SHIFT NOTE PATIENT SLEPT 5 HOURS. FLUID INTAKE 1,296 ML. VOIDED X 2 . NO BM. PATIENT CONTINUE ON VALIUM AND SUBUTEX TAPER, TOLERATED WELL AND NO ADVERSE REACTION. PATIENT ALERT AND ORIENTED X 4,RESPIRATION EVEN AND UNLABORED, HE REPORTED ANXIETY, SWEATING, STUFFY NOSE , ABDOMINAL CRAMPING, NO N/V, DENIES ANY PAIN BEGINNING OF SHIFT. PATIENT REQUESTED LAXATIVE, PRN MOM GIVEN. ENCOURAGE FLUIDS. PATIENT COMPLIANT WITH MEDICATION AND TREATMENT PLAN. ON FALL/SEIZURE PRECAUTION. WILL CONTINUE TO MONITOR. LAST COWS 5 AND CIWA 3.
--- NOTE | 2017-11-18 07:25 | NUR ---
Start of Shift Field Sales Consultant received report on 22 year old male admitted to [facility] on 11/13/17 for Benzodiazepine, Heroin and Methamphetamine detoxification. Pt reports NKDA, full code and eats a regular diet. Pt reports PMH of bipolar and a withdrawal related seizure 2 years ago. Pt has tested positive for Hep C. Pt currently on a Valium and Subutex taper, tolerating well. Last COWS 5, CIWA 3 recorded at 0400, per NOC report. Pt was administered Milk of Magnesia on NOC, with no reports of BM. Field Sales Consultant encounters pt in room resting on bed with eyes closed. Even and unlabored respirations with rise and fall of chest noted. Bed in low position, wheels locked and side rails up x2. Will continue to monitor, support and encourage according to plan of care.
[2017-11-18 08:11] VITALS: BP 106/48
[2017-11-18] MEDS ORDERED: DIAZEPAM 5 MG TABLET PO SCH (09:00)
[2017-11-18] MEDS ORDERED: BUPRENORPHINE HCL 2 MG TAB.SUBL SL SCH (09:00)
[2017-11-18] MEDS: FOLIC ACID 1 MG TABLET PO SCH (09:56)
[2017-11-18] MEDS: MIRALAX 17 GM POWD.PACK PO PRN (09:56)
[2017-11-18] MEDS: CLONIDINE HCL 0.1 MG TABLET PO SCH ×2 (09:57→20:32)
[2017-11-18] MEDS: BACLOFEN 10 MG TABLET PO SCH ×2 (09:57→20:31)
[2017-11-18] MEDS: MULTIVITAMINS,THERAPEUTIC TABLET PO SCH (09:57)
[2017-11-18] MEDS: GABAPENTIN 300 MG CAPSULE PO SCH ×3 (09:57→20:31)
--- NOTE | 2017-11-18 10:00 | NUR ---
PRN Miralax Pt requests Miralax due to constipation. States he hasn't had a BM in 2 days. Medication administered per MD order with pt tolerating well. Will continue to monitor, support and encourage according to plan of care.
--- NOTE | 2017-11-18 11:00 | NUR ---
PRN Re-Assessment No BM noted
[2017-11-18 12:38] VITALS: BP 112/72
[2017-11-18] MEDS ORDERED: HYDR-3895 PO (15:56)
[2017-11-18] MEDS ORDERED: QUET200T PO (15:56)
[2017-11-18] MEDS ORDERED: DIPH50CA37 PO (15:56)
[2017-11-18] MEDS ORDERED: GABA-534 PO (15:56)
[2017-11-18] MEDS ORDERED: IBUP-1955 PO (15:56)
[2017-11-18] MEDS ORDERED: DICY20TA28 PO (15:56)
[2017-11-18] MEDS ORDERED: METH-406 PO (15:56)
[2017-11-18] MEDS ORDERED: CLON0.1T14 PO (15:56)
[2017-11-18 16:10] VITALS: BP 108/53
--- NOTE | 2017-11-18 18:59 | NUR ---
End of Shift Inside Sales Advertising Executive provided report on 22 year old male admitted to [facility] on 11/13/17 for Benzodiazepine, Heroin and Methamphetamine detoxification. Pt reports NKDA, full code and eats a regular diet. Pt reports PMH of bipolar and a withdrawal related seizure 2 years ago. Pt has tested positive for Hep C. Pt has completed the Valium and Subutex tapers, tolerated well. Last COWS 3, CIWA 2 recorded at 1600.Pt was administered Miralax PRN after pt made complaint of no BM x2 days. No report of any BM today. Pt has been visible on the unit, social with staff and peers. A/O x4 and makes his needs known. Bright affect with congruent mood. Pt is manipulative and entitled. Calm, cooperative and pleasant. Pt is preparing to discharge tomorrow. Pt was found with pill remnants wrapped in paper in his dresser drawer. MD and administration aware. Bed in low position, wheels locked and side rails up x2. Will continue to monitor, support and encourage according to plan of care.
--- NOTE | 2017-11-18 19:00 | NUR ---
Start of Shift Patient Received. Patient is in bed sleeping but easily aroused to verbal stimuli. Breathing even and non labored. Patient is a 22 year old male admitted on 11/13/17 and is set for discharge tomorrow 11/19/17. Patient completed a 5 day Valium and 5 day Subutex taper. Per endorsement, patient was informed of new Hep C by MD diagnosis with proper counseling and education provided. No PRN medications administered. Last noted COWS 3 and CIWA 2. All needs attended to promptly. Will continue plan of care as ordered.
[2017-11-18 20:27] VITALS: BP 108/72
[2017-11-18] MEDS: QUETIAPINE FUMARATE 200 MG TABLET PO SCH (20:31)
[2017-11-19 00:25] VITALS: BP 103/70
[2017-11-19 04:23] VITALS: BP 107/63
--- NOTE | 2017-11-19 07:04 | NUR ---
End of Shift Patient is in bed sleeping. Breathing even and non labored. No signs of restlessness or discomfort noted. Patient is set for discharge today 11/19/17. No PRN Medications administered. Patient was able to participate in social activities prior to bed and was able to verbalize positive coping skills to maintain sober lifestyle. Last noted COWS 3 and CIWA 3. All needs attended to promptly. Will endorse to continue plan of care as ordered.
--- NOTE | 2017-11-19 07:43 | NUR ---
START OF SHIFT RECEIVED PT LAYING IN BED, A/OX4, RESPIRATIONS EVEN AND UNLABORED. PT REPORTS HAVING SWEATING, CHILLS, GENERALIZED BODY ACHES. PT IS TO BE DISCHARGED TODAY. SIDE RAILS UP X2, BED IS IN LOWEST POSITION. CALL LIGHT WITHIN REACH. WILL CONTINUE TO MONITOR.
[2017-11-19 08:00] VITALS: BP 132/89
[2017-11-19] MEDS: BACLOFEN 10 MG TABLET PO SCH (08:44)
[2017-11-19 08:45] VITALS: BP 132/99
[2017-11-19] MEDS: FOLIC ACID 1 MG TABLET PO SCH (08:45)
[2017-11-19] MEDS: MULTIVITAMINS,THERAPEUTIC TABLET PO SCH (08:45)
[2017-11-19] MEDS: CLONIDINE HCL 0.1 MG TABLET PO SCH (08:45)
[2017-11-19] MEDS: GABAPENTIN 300 MG CAPSULE PO SCH (08:45)
--- NOTE | 2017-11-19 11:35 | NUR ---
DISCHARGE NOTE PT WAS DISCHARGED IN STABLE CONDITION, A/O X4, VVS, DENIES SI/HI. LAST COWS 3, CIWA 3. PT SIGNED ALL D/C PAPERWORK AND COPIED. D/C INSTRUCTION GIVEN TO PT AND VERBALIZED UNDERSTANDING. PT HAD NO HOME MEDS. AWARE AND NOTIFIED OF PT D/C. PT LEFT THE BUILDING WITH ALL BELONGINGS, PRESCRIPTIONS, D/C PAPERWORK AT 1135 ON 11/19/17. PT IS PICKED UP BY GERALD RYDER AND TAKEN TO [facility].
== END 2017-11-19 11:35 | disposition other institution (70) | DRG 895 ==
LOC: SRC 00:01
PROVIDERS: ADMIT Internal Medicine; ATTEND Internal Medicine
PROC: HZ2ZZZZ Detoxification Services for Substance Abuse Treatment (ICD-10-PCS; principal; 2017-11-13)
PROC: HZ41ZZZ Group Counseling for Substance Abuse Treatment, Behavioral (ICD-10-PCS; 2017-11-14)
PROC: HZ31ZZZ Individual Counseling for Substance Abuse Treatment, Behavioral (ICD-10-PCS; 2017-11-16)
DX: F11.23 Opioid dependence with withdrawal (principal); F31.9 Bipolar disorder, unspecified; I15.9 Secondary hypertension, unspecified; E07.81 Sick-euthyroid syndrome; F13.232 Sedative, hypnotic or anxiolytic dependence with withdrawal with perceptual disturbance; F14.10 Cocaine abuse, uncomplicated; F17.210 Nicotine dependence, cigarettes, uncomplicated; Z59.0 Homelessness; F15.23 Other stimulant dependence with withdrawal; Z81.1 Family history of alcohol abuse and dependence; Z81.8 Family history of other mental and behavioral disorders; Z91.14 Patient's other noncompliance with medication regimen; Z59.1 Inadequate housing; Z91.89 Other specified personal risk factors, not elsewhere classified; Z65.3 Problems related to other legal circumstances; B19.20 Unspecified viral hepatitis C without hepatic coma
CPT/HCPCS: 36415; 70030-TC; 80307; 80345; 80346; 80353; 80361; 83690; 83735; 84443; 85025; 86580; 86592; 86705; 86803; 87340; A4663; G0480; J1885; Q0162

== ENCOUNTER 2018-04-10 18:15 | Inpatient (IN) | payer OTHER ==
[~2018-04-10 18:15] MED LIST: CLON0.1T14 PO; DICY20TA28 PO; DIPH50CA37 PO; GABA-534 PO; HYDR-3895 PO; IBUP-1955 PO; METH-406 PO; QUET200T PO
[2018-04-11] MEDS ORDERED: ARIP5TAB10 PO (10:33)
== END 2018-04-10 23:20 | disposition left against medical advice (07) | DRG 894 ==
LOC: SRC 22:55
PROVIDERS: ADMIT Family Medicine; ATTEND Family Medicine
DX: F19.239 Other psychoactive substance dependence with withdrawal, unspecified (principal); Z75.3 Unavailability and inaccessibility of health-care facilities

== ENCOUNTER 2018-04-11 09:10 | Inpatient (IN) | payer OTHER ==
[~2018-04-11] VITALS: Ht 182.9 cm; Wt 90.7 kg
[2018-04-11 10:00] VITALS: BP 139/65
[2018-04-11] MEDS ORDERED: ARIP5TAB10 PO (10:33)
--- NOTE | 2018-04-11 10:33 | NUR ---
PRE ASSESSMENT: PT IS IN INTAKE. HIS EYES CLOSE DURING ASSESSMENT AND NODDING OFF. POOR EYE CONTACT NOTED. SLIGHTLY SLURRED SPEECH. PT STATES HE USED 1 GM OF HEROIN LATE LAST NIGHT AND 1.5 GM THIS AM IV AT 0900. HE ALSO USED 1 GM OF METH THIS AM AT 0900. HE RELAPSED 1 MONTH AGO AND ALSO USES KLONOPIN 8-12 MG DAILY PO X 3 WEEKS. HE LAST USED KLONOPIN ON FRIDAY NIGHT 04/09. HE USES 2 .5 GM OF HEROIN IV DAILY X 4 WEEKS. HE USES 1 GM OF METHAMPHETAMINE DAILY IV X 4 WEEKS . SZ HX FROM [employer] W/D IN 2015. HE REPORTS BIPOLAR DISORDER AND DEPRESSION. HE TAKES ABILIFY WHICH HE BROUGHT INTO FACILITY. HE WAS AT [facility] IN NOV 2017 AND STAYED CLEAN UNTIL 1 MONTH AGO. WILL ASSESS ON UNIT.
--- NOTE | 2018-04-11 11:20 | NUR ---
ADMISSION: A 23 YO MALE ADMITTED FOR MEDICALLY SUPERVISED WITHDRAWAL OF BENZO AND OPIATE WITHDRAWAL.A/O X 4 POOR EYE CONTACT NOTED. HE IS RESTLESS AND BECOMES EASILY AGITATED ON ASSESSMENT.HIS MOOD IS ANGRY AND AFFECT CONGRUENT. HE REPORTS USING 8-12 MG OF KLONOPIN DAILY X 3 WEEKS. LAST USED 10 MG ON 04/09 IN PM. HE REPORTS USING HEROIN IV 2.5 GM DAILY. LAST USED HEROIN 1.5 GM THIS AM AT 0900. HE ALSO REPORTS USING METHAMPHETAMINE 1 GM IV DAILY. LAST USED 1 GM THIS AM AT 0900. HE LATER REPORTED HE DRINKS VODKA A COUPLE OF TIMES WEEKLY BUT DOES NOT WANT TO ANSWER HOW MUCH ALCOHOL WHEN HE DRINKS. HE STATES HE WAS CLEAN AND SOBER FROM NOV-FEBRUARY 2018 AND HIS RELAPSE WAS TRIGGERED BY RESENTMENTS THAT HE CARRIES TOWARD OTHER MEMBERS OF AA AND NEGATIVE EMOTIONS THAT HE FELT UNABLE TO MANAGE WITHOUT DRUGS. PT RAISES HIS VOICE DURING ASSESSMENT AND DEMANDS MEDS AT ONCE. HE STATES HE FEELS IRRITABLE,AGITATED AND FEELS LIKE HE IS GOING TO HAVE A PANIC ATTACK.OFFERED SUPPORT.VALIUM 10 MG GIVEN X 1.PT STATES IT IS NOT GOING TO WORK FAST ENOUGH. PT DENIES ALLERGIES. HE REPORTS HX OF BIPOLAR DISORDER AND DEPRESSION AND HE TAKES ABILIFY AND BROUGHT IT INTO FACILITY. ORIENTED PT TO STAFF AND FACILITY. PT IS THREATENING TO LEAVE BECAUSE HE IS NOT GETTING ENOUGH MEDS. CICI 9 SZ HISTORY FROM BZO W/D IN AUG 2016. HE DENIES A PCP. HE DENIES S/I AND H/I. WILL CONTINUE TO MONITOR AND MANAGE S/S OF W/D. Addendum: 04/11/18 at 1319 by HA BROWN RN PT IS RELUCTANT TO DISCUSS HIS ETOH USE HE IS AGITATED.
[2018-04-11] MEDS ORDERED: DIAZEPAM 10 MG TABLET PO ONE (11:45)
[2018-04-11 11:51] LABS: *AMPHETAMINE, URINE POSITIVE (NEGATIVE); *BARBITURATE, URINE NEGATIVE (NEGATIVE); *CANNABINOID, URINE POSITIVE (NEGATIVE); *COCCAINE, URINE NEGATIVE (NEGATIVE); *OPIATE, URINE POSITIVE (NEGATIVE); *PHENCYCLIDINE SCREEN,URINE NEGATIVE (NEGATIVE)
[2018-04-11] MEDS ORDERED: METHOCARBAMOL 750 MG TABLET PO PRN (12:15)
[2018-04-11] MEDS ORDERED: MAGNESIUM HYDROXIDE 30 ML LIQUID UDC PO PRN (12:15)
[2018-04-11] MEDS ORDERED: LOPERAMIDE HCL 2 MG CAPSULE PO PRN ×2 (12:15)
[2018-04-11] MEDS ORDERED: 5 DAY TAPER VALIUM-SERENITY PROTOCOL PO PRN (12:15)
[2018-04-11] MEDS ORDERED: MIRALAX 17 GM POWD.PACK PO PRN (12:15)
[2018-04-11] MEDS ORDERED: ONDANSETRON 4 MG/2 ML VIAL IM PRN (12:15)
[2018-04-11] MEDS ORDERED: LORAZEPAM 2 MG/1 ML VIAL IM PRN (12:15)
[2018-04-11] MEDS ORDERED: MAG HYDROX/AL HYDROX/SIMETH 30 ML LIQUID UDC PO PRN (12:15)
[2018-04-11] MEDS ORDERED: DIAZEPAM 10 MG TABLET PO PRN ×2 (12:15)
[2018-04-11] MEDS ORDERED: DIAZEPAM 5 MG TABLET PO PRN (12:15)
[2018-04-11] MEDS ORDERED: ONDANSETRON ODT 4 MG TAB.RAPDIS SL PRN (12:15)
[2018-04-11] MEDS ORDERED: diphenhydrAMINE 50 MG CAPSULE PO PRN (12:15)
[2018-04-11] MEDS ORDERED: ACETAMINOPHEN 325 MG TABLET PO PRN (12:15)
[2018-04-11] MEDS ORDERED: THIAMINE HCL 200 MG/2 ML VIAL IM ONE (12:15)
[2018-04-11] MEDS ORDERED: BUPRENORPHINE HCL 2 MG TAB.SUBL SL PRN (12:15)
[2018-04-11] MEDS ORDERED: 5 DAY TAPER BUPRENORPHINE -SERENITY PROTOCOL SL PRN (12:15)
[2018-04-11] MEDS ORDERED: DICYCLOMINE HCL 20 MG TABLET PO PRN (12:15)
--- NOTE | 2018-04-11 12:20 | NUR ---
PT STATES THE VALIUM WAS NOT EFFECTIVE IN REDUCING S/S OF BZO W/D. CIWA REMAINS 9. WILL DISCUSS WITH .
[2018-04-11] MEDS ORDERED: LORAZEPAM 1 MG TABLET PO ONE (13:15)
--- NOTE | 2018-04-11 13:20 | NUR ---
PT IS AGITATED AND COMPLAINING OF INCREASED ANXIETY BORDERING PANIC. HE IS FIDGETY AND RESTLESS. CIWA 12. ATIVAN 2 MG PO X 1 GIVEN PER MD. WILL MONITOR EFFECTIVENESS OF MEDICATION
--- NOTE | 2018-04-11 14:20 | NUR ---
PT STATES HE FEELS A LITTLE BETTER. HE IS CALM AND LAYING IN BED A/O X 4. CIWA 7. ATIVAN WAS EFFECTIVE. WILL CONTINUE TO MONITOR AND MANAGE S/S OF W/D.
--- NOTE | 2018-04-11 16:58 | NUR ---
COWS AND CIWA DEFERRED PT IS ASLEEP.RESPIRATIONS EVEN AND UNLABORED. WILL CONTINUE TO MONITOR AND OFFER SUPPORT.
--- NOTE | 2018-04-11 19:11 | NUR ---
END OF SHIFT: PT IS A NEW ADMIT. HE WAS AGITATED AND ANXIOUS AND VALIUM 10 MG PO X 1 WAS GIVEN PER MD AND NOT EFFECTIVE. PT COMPLAINED THAT HE FELT EXTREMELY ANXIOUS AND AGITATED AND ATIVAN 2 MG PO X 1 GIVEN PER MD CIWA SCORE WENT FROM 12 TO 7. HE HAS BEEN ASLEEP WITH RESPIRATIONS EVEN AND UNLABORED CALL CORONEL IN REACH. WILL PASS SHIFT REPORT TO ONCOMING NIGHT NURSE. SUBUTEX/VALIUM TAPER TO START IN AM WITH PRNS AVAILABLE.
--- NOTE | 2018-04-11 19:54 | NUR ---
START OF SHIFT NOTE+ Rcvd report from outgoing nurse, pt is in his room. Pt is a 23 y/o male A/O to person, place, time, and purpose. Pt was admitted for medically supervised withdrawal from ETOH and Benzodiazepines. Pts last Heroin use was this am. Pt was intoxicated upon admission. Pt has been presenting w/ anxiety, agitation, and emotional volatility. Pt, during previous shift, was yelling at staff c/o anxiety. Pt refused to have his blood work taken during previous shift. Pt denies S/I and H/I. PRN Valium 10mg and Ativan 2mg was given for increased anxiety and agitation, noted effective. Last CIWA 7 @ 1330. Call light is within reach. Pt will continue to be monitored and needs met.
[2018-04-11 20:00] VITALS: BP 114/62
--- NOTE | 2018-04-11 20:00 | NUR ---
CIWA AND COWS DEFERRED Pt is in bed w/ his eyes closed. Pt's respirations are even and unlabored. Pt is arousable, but very lethargic.
[2018-04-11] MEDS: QUETIAPINE FUMARATE 200 MG TABLET PO SCH (21:59)
[2018-04-11] MEDS: ARIPIPRAZOLE 5 MG TABLET PO SCH (21:59)
--- NOTE | 2018-04-12 | NUR ---
CIWA AND COWS DEFERRED Pt is in bed w/ his eyes closed. Pt's respirations are even and unlabored.
--- NOTE | 2018-04-12 04:00 | NUR ---
CIWA AND COWS DEFERRED Pt is in bed w/ his eyes closed. Pt's respirations are unlabored and even.
--- NOTE | 2018-04-12 07:10 | NUR ---
END OF SHIFT NOTE Endorsed pt to oncoming nurse, pt is in his room. Pt is a 23 y/o male A/O to person, place, time, and purpose. Pt was admitted for medically supervised withdrawal from ETOH and Benzodiazepines. Pt was intoxicated upon admission. Pt presents w/ anxiety, lethargy, abdominal cramping, nausea, fine tremors, sweats, and chills. Pt was less agitated and more cooperative than during the day on 04/11/18, but began to show s/s of withdrawal. Pt denies S/I and H/I. Pt rcvd no PRN medications during shift. Pts fluid intake was 1091ml and he voided 2 times. Pt slept for 9.5 hrs. Pts last CIWA 8 and COWS 8 @ 2200. Call light is within reach.
--- NOTE | 2018-04-12 07:34 | NUR ---
START OF SHIFT: PATIENT IS A 23 YR OLD MALE WHO WAS ADMITTED TO [facility] ON 04/11/18 FOR A MEDICALLY SUPERVISED WITHDRAWAL FROM ALCOHOL, BENZODIAZEPINES ( KLONOPIN), OPIATES ( HEROIN) AND METHAMPHETAMINES. HE IS ON A VALIUM / SUBUTEX TAPER AND THIS IS DAY 1. NO PRN MEDICATIONS WERE REQUIRED OR REQUESTED ON PM SHIFT. LAST COWS 7 AND CIWA 8 @ 10PM. HE SLEPT FOR 9.5 HOURS. PATIENT IS ASLEEP IN BED AT THIS TIME, BREATHING EVEN AND UNLABORED, SIDE RAILS UP X2, CALL LIGHT WITHIN REACH. CONTINUE TO FOLLOW MD PLAN OF CARE AND OFFER SUPPORT NEEDED.
[2018-04-12 07:49] LABS: BASOPHILS % (AUTO) 0.4 % (0.0-2.0); EOSINOPHILS # (AUTO) 0.5 K/uL (0.0-0.7); EOSINOPHILS % (AUTO) 8.5 % (0.0-7.0); HEMATOCRIT 39.2 % (36.7-47.1); HEMOGLOBIN 13.4 g/dL (12.5-16.3); LYMPHOCYTES # (AUTO) 2.4 K/uL (20.0-40.0); MEAN CORPUSCULAR HGB CONC 34 g/dL (32.5-36.3); MEAN CORPUSCULAR VOLUME 81.6 fL (73.0-96.2); MONOCYTES # (AUTO) 0.6 K/uL (2.0-10.0); MONOCYTES % (AUTO) 8.6 % (0.0-11.0); NEUTROPHILS # (AUTO) 2.9 K/uL (1.8-8.9); NEUTROPHILS % (AUTO) 45.5 % (38.5-71.5); PLATELET COUNT (AUTO) 186 K/uL (152-348); RED BLOOD CELL COUNT(AUTO) 4.81 MIL/uL (4.06-5.63); WHITE BLOOD COUNT (AUTO) 6.4 K/uL (3.6-10.2)
[2018-04-12 08:00] VITALS: BP 114/63
[2018-04-12 08:07] LABS: ETHANOL < 3 MG/DL (0-0)
[2018-04-12 08:15] LABS: ALANINE AMINOTRANSFERASE 30 U/L (16-63); ALKALINE PHOSPHATASE 67 U/L (50-136); AMYLASE 23 U/L (25-115); ASPARTATE AMINOTRANSFERASE 34 U/L (15-37); BILIRUBIN,TOTAL 0.5 mg/dL (0.2-1.0); CARBON DIOXIDE 28 mmol/L (21-32); CHLORIDE 104 mmol/L (98-107); CREATININE 1.2 mg/dL (0.6-1.3); GLUCOSE 90 mg/dL (74-106); LIPASE 43 U/L (73-393); POTASSIUM 3.9 mmol/L (3.5-5.1); UREA NITROGEN, BLOOD 19 mg/dL (7-18)
[2018-04-12] MEDS: BUPRENORPHINE HCL 2 MG TAB.SUBL SL SCH ×5 (09:00→21:51)
[2018-04-12] MEDS ORDERED: TUBERCULIN,PURIF.PROT.DERIV. 5 TU/0.1 ML TEST ID ONE (09:00)
[2018-04-12] MEDS: THIAMINE HCL 100 MG TABLET PO SCH (09:49)
[2018-04-12] MEDS: FOLIC ACID 1 MG TABLET PO SCH (09:49)
[2018-04-12] MEDS: DIAZEPAM 10 MG TABLET PO SCH ×4 (09:49→21:51)
[2018-04-12] MEDS: MULTIVITAMINS,THERAPEUTIC TABLET PO SCH (09:49)
--- NOTE | 2018-04-12 10:00 | NUR ---
SUBUTEX HELD PATIENT STATES HE IS NOT READY TO START SUBUTEX TAPER, COWS 12 BUT HE STATES HE WILL LET NURSE KNOW WHEN HE IS READY.
[2018-04-12 12:00] VITALS: BP 133/80
--- NOTE | 2018-04-12 12:25 | NUR ---
PRN MOM PATIENT REQUESTS MOM 30CC PO, GIVEN FOR C/O CONSTIPATION. WILL REASSESS
--- NOTE | 2018-04-12 13:30 | NUR ---
PRN REASSESS PATIENT STATES MOM IS WORKING AND HE IS ABLE TO PASS SMALL AMOUNTS OF STOOL, WILL CONT TO MONITOR
[2018-04-12 14:46] LABS: THYROID STIMULATING HORMONE 1.714 mIU/mL (0.358-3.740)
[2018-04-12 15:50] VITALS: BP 142/92
[2018-04-12] MEDS: CLONIDINE HCL 0.1 MG TABLET PO PRN (15:50)
--- NOTE | 2018-04-12 15:50 | NUR ---
PRN CLONIDINE CLONIDINE 0.1 MG PO GIVEN FOR BP 142/92 HR 113 WILL REASSESS AND MONITOR
[2018-04-12 16:30] VITALS: BP 131/77
[2018-04-12] MEDS ORDERED: HYDROXYZINE PAMOATE 25 MG CAPSULE PO PRN (16:30)
[2018-04-12] MEDS ORDERED: DICYCLOMINE HCL 20 MG TABLET PO PRN (16:30)
[2018-04-12] MEDS ORDERED: METHOCARBAMOL 750 MG TABLET PO PRN (16:30)
[2018-04-12] MEDS ORDERED: diphenhydrAMINE 50 MG CAPSULE PO PRN (16:30)
[2018-04-12] MEDS ORDERED: IBUPROFEN 600 MG TABLET PO PRN (16:30)
--- NOTE | 2018-04-12 16:35 | NUR ---
PRN ATIVAN ATIVAN 2MG PO GIVEN FOR S/S AGITATION/ANXIETY CIWA 18 WILL REASSESS
[2018-04-12] MEDS: LORAZEPAM 1 MG TABLET PO PRN (16:36)
--- NOTE | 2018-04-12 16:50 | NUR ---
PRN REASSESS BP 131/77 ( WAS 142/92) CLONIDINE 0.1MG PO EFFECTIVE
[2018-04-12] MEDS: GABAPENTIN 300 MG CAPSULE PO SCH (16:55)
--- NOTE | 2018-04-12 17:35 | NUR ---
ATIVAN PRN REASSESS ATIVAN 2MG PO EFFECTIVE, HR 128 DECREASED TO 101 CIWA NOW 13
--- NOTE | 2018-04-12 19:09 | NUR ---
END OF SHIFT: PATIENT IS A 23 YR OLD MALE WHO WAS ADMITTED TO [facility] ON 04/11/18 FOR A MEDICALLY SUPERVISED WITHDRAWAL FROM BENZODIAZEPINES ( KLONOPIN) AND OPIATES ( HEROIN ). HE HAS BEEN PLACED ON A 5 DAY VALIUM/SUBUTEX TAPER WHICH STARTED TODAY AND IS TOLERATING WELL. WITHDRAWAL SYMPTOMS INCLUDE: DECREASED APPETITE, BILATERAL HAND TREMORS, FATIGUE, GENERALIZED BODY ACHES AND CONSTIPATION. PRN MEDS GIVEN ON THIS SHIFT : MOM / WITH POSITIVE EFFECTS, CLONIDINE AND ATIVAN 2MG PO. HE HAD A FLUID INTAKE OF 1750ML, 5 VOIDS AND 1BM. LAST COWS 11@ 1600 AND CIWA 13@ 1700. CONTINUE TO FOLLOW MD PLAN OF CARE AND OFFER HELP NEEDED. ENDORSED TO COURT STENOGRAPHER.
[2018-04-12 20:00] VITALS: BP 103/60
--- NOTE | 2018-04-12 20:00 | NUR ---
Start of Shift Note Received 23 y/o male px, admitted for medically supervised withdrawal from benzo and opiate. Px was placed on 5 day Valium and 5 day Subutex taper, started today. Px is tolerating them. Last reported COWS 11 and CIWA 13 by AM shift nurse. During the rounds at 1999, px is asleep on bed in fowlers position. Bed on lowest position, side rails up padded and call light within reach. Well continue to monitor.
--- NOTE | 2018-04-12 20:00 | NUR ---
COWS and CIWA deferred COWS and CIWA deferred due to the px is asleep, to assess if the px is awake per doctor's order. We'll continue to monitor.
--- NOTE | 2018-04-12 21:45 | NUR ---
Px woke up Px woke up. Px appears drowsy, unshaven, disheveled, and odorous. Drinks and snacks all over the the bed side table and on top of the cabinet. Wash clothes noted on the floor. No complaints made at this time. Due medications given. We'll continue to monitor.
[2018-04-12] MEDS: QUETIAPINE FUMARATE 200 MG TABLET PO SCH (21:51)
[2018-04-12] MEDS: ARIPIPRAZOLE 5 MG TABLET PO SCH (21:51)
[2018-04-13] VITALS: BP 111/66
--- NOTE | 2018-04-13 03:30 | NUR ---
Px woke up Px woke up to eat some snacks. Px stated "Can I have Ativan? I am too anxious and I want to go back to sleep."
[2018-04-13 04:00] VITALS: BP 118/73
[2018-04-13] MEDS: LORAZEPAM 1 MG TABLET PO PRN (04:33)
--- NOTE | 2018-04-13 04:33 | NUR ---
PRN Ativan Px received Ativan 1 mg/tab, 2 tabs PO as PRN medication for agitation and anxiety. CIWA 12 at this moment. We'll continue to monitor.
--- NOTE | 2018-04-13 07:10 | NUR ---
End of Shift Note During the shift at 0433, Px received Ativan 2 mg PO as PRN medication for agitation and increase anxiety. Px also complained of pain on the right hand due to IV track hoang. Ice pack and warm pack applied. Pxs oral intake is 1000 ml, voided 2x, without BM. Px slept for 8.5 hours. Last COWS 9 and CIWA 12. At 0630, px is awake on bed in fowlers position. Bed on lowest position, side rails up padded and call light within reach. Well continue to monitor. Px is endorsed to AM shift nurse.
--- NOTE | 2018-04-13 07:50 | NUR ---
START OF SHIFT Pt is a 23 yr old male, AA%Ox4. pt was admitted on 04/11/18 for Benzo/Opiate withdrawal and is on 5 day Subutex taper and 5 day Valium taper as ordered. Received report from fast food shift lead nurse. Pt received Ativan 2mg PO PRN during the night. Medication was effective. pt slept for 8.5 hrs. Last COWS score was 9 and CIWA score was 12 during the night. Pt is c/o increase anxiety and pain of right hand. Pt is noted with slurred speech and difficulty thinking clearly. Pt's room is noted with multiple open bottles of juice and water on his bed side table. Pt is on fall and seizure precautions. Call light is within reach. Will continue to monitor.
[2018-04-13 08:00] VITALS: BP 121/68
[2018-04-13] MEDS: GABAPENTIN 300 MG CAPSULE PO SCH ×3 (08:47→17:38)
[2018-04-13] MEDS: BUPRENORPHINE HCL 2 MG TAB.SUBL SL SCH ×3 (08:47→21:29)
[2018-04-13] MEDS: MULTIVITAMINS,THERAPEUTIC TABLET PO SCH (08:47)
[2018-04-13] MEDS: THIAMINE HCL 100 MG TABLET PO SCH (08:47)
[2018-04-13] MEDS: DIAZEPAM 10 MG TABLET PO SCH ×3 (08:47→21:23)
[2018-04-13] MEDS: FOLIC ACID 1 MG TABLET PO SCH (08:47)
[2018-04-13] MEDS: IBUPROFEN 600 MG TABLET PO PRN (10:11)
--- NOTE | 2018-04-13 10:11 | NUR ---
PRN GIVEN Pt is c/o right hand pain 04/21. Motrin 600mg PO PRN was given as ordered. encouraged increase fluid intake. Will continue to monitor.
[2018-04-13 11:07] LABS: HEPATITIS B SURFACE AG Negative (Negative)
--- NOTE | 2018-04-13 11:11 | NUR ---
PRN RE-ASSESSMENT Motrin PRN was effective. Pain level subsided to 2/10. Encouraged increase fluid intake. Will continue to monitor.
[2018-04-13 12:00] VITALS: BP 141/60
--- NOTE | 2018-04-13 12:00 | NUR ---
COWS AND CIWA ASSESSMENT DEFERRED Pt is currently in bed sleeping with respirations even and unlabored. COWS and CIWA score is deferred at this time. Will continue to monitor.
--- NOTE | 2018-04-13 13:00 | NUR ---
MEDICATION HELD Neurontin 600mg PO scheduled at 1300 was held due to pt was too sedated. Safety precautions observed. Will continue to monitor.
[2018-04-13 16:00] VITALS: BP 130/76
[2018-04-13] MEDS: HYDROXYZINE PAMOATE 25 MG CAPSULE PO PRN (16:16)
[2018-04-13] MEDS: CLONIDINE HCL 0.1 MG TABLET PO PRN (16:18)
--- NOTE | 2018-04-13 16:18 | NUR ---
PRN GIVEN Pt c/o increase anxiety. Clonidine 0.1mg PO and Vistaril 25mg PO PRN was given as ordered. Will continue to monitor.
--- NOTE | 2018-04-13 17:18 | NUR ---
PRN RE-ASSESSMENT Clonidine 0.1mg PO PRN and Vistaril PRN was effective. Pt continues to c/o anxiety but is able to cope with anxiety level. Will continue to monitor.
--- NOTE | 2018-04-13 19:25 | NUR ---
END OF SHIFT Pt is a 23 yr old male, AA&Ox4. Pt was admitted on 04/11/18 for Benzo/Opiate withdrawal and is on 5 day Valium and 5 day Subutex taper as ordered. Medication [place] well. Pt has been noted with increase fatigue and remained in his room throughout the day. Pt was c/o increase anxiety, muscle aches, and right hand pain. Pt received Motrin 600mg PO PRN at 1011 and Clonidine 0.1mg PO PRN and Vistaril 25mg PO PRN at 1618. Medication was effective. Last COWS 9 and CIWA score was 12 at 1600. Pt was encouraged increase fluid intake for hydration. Safety precautions observed. Call light is within reach. Endorsed to assembler 1st shift nurse to continue with care.
[2018-04-13 20:00] VITALS: BP 107/61
--- NOTE | 2018-04-13 20:00 | NUR ---
CICI AND GLENN DEFERRED PATIENT SLEEPING. RESPIRATION EVEN AND UNLABORED. WILL ASSESS PATIENT WHEN HE WAKES UP.
--- NOTE | 2018-04-13 20:00 | NUR ---
RECEIVED REPORT FROM DAY SHIFT NURSE. PATIENT IS A 23 YEAR OLD MALE ADMITTED FOR BENZO/OPIATE WITHDRAWAL. PATIENT IS ON 5 DAY SUBUTEX AND 5 DAY VALIUM TAPER. PATIENT WAS C/O RIGHT HAND PAIN , X-RAY DONE AND WITH NEGATIVE OF FRACTURE. PATIENT WAS GIVEN MOTRIN, CLONIDINE AND VISTARIL. LAST COWS 9 AND CIWA 12. PATIENT IN THE ROOM, SLEEPING. RESPIRATION EVEN AND UNLABORED. RESPIRATION EVEN AND UNLABORED. GARBAGE NOTED AROUND ROOM, SPILLED DRINKS , DIRTY SHEETS AND CLOTHES THROWN ON THE FLOOR. SAFETY MEASURES IN PLACE. CALL LIGHT IN REACH. WILL CONTINUE TO MONITOR
[2018-04-13] MEDS: QUETIAPINE FUMARATE 200 MG TABLET PO SCH (21:22)
[2018-04-13] MEDS: ARIPIPRAZOLE 5 MG TABLET PO SCH (21:23)
--- NOTE | 2018-04-13 21:23 | NUR ---
SCHEDULED MEDICATION ADMINISTERED PATIENT WOKE UP , SCHEDULED MEDICATION GIVEN ORDERED.
[2018-04-14] VITALS: BP 120/69
--- NOTE | 2018-04-14 | NUR ---
COWS AND CIWA DEFERRED PATIENT SLEEPING. RESPIRATION EVEN AND UNLABORED. WILL CONTINUE TO MONITOR
--- NOTE | 2018-04-14 04:00 | NUR ---
COWS AND CIWA DEFERRED PATIENT SLEEPING. RESPIRATION EVEN AND UNLABORED. WILL CONTINUE TO MONITOR
--- NOTE | 2018-04-14 07:17 | NUR ---
END OF SHIFT NOTE PATIENT SLEPT 7 HOURS. FLUID INTAKE 1,141 ML. VOIDED X 3 . BM X 1. MONITORED PATIENT THROUGHOUT SHIFT. PATIENT IN BED , SLEEPING BEGINNING OF SHIFT. AT 2122, PATIENT WOKE UP , SCHEDULED MEDICATION AND TAPER GIVEN ORDERED. PATIENT WENT BACK TO SLEEP. PATIENT WENT DOWN TO SMOKE TWICE DURING SHIFT. PATIENT DID NOT REQUIRE PRN MEDICATION. SAFETY MEASURES IN PLACE. CALL LIGHT IN REACH. WILL CONTINUE TO MONITOR . LAST COWS 10 AND CIWA 10.
[2018-04-14 08:00] VITALS: BP 105/65
--- NOTE | 2018-04-14 08:15 | NUR ---
START OF SHIFT: RECEIVED PT A/O X 4. HE PRESENTS WITH ANXIOUS MOOD AND IS SLIGHTLY AGITATED. HE IS DISHEVELED. HIS ROOM IS IN DISARRAY. HE REPORTS RESTLESS SLEEP LAST NIGHT. HE REPORTS SWEATS,BODY ACHES,ANXIETY,RESTLESSNESS,IRRITABILITY,FATIGUE,H/A 5/10 AND INTERMITTENT CHILLS. COWS 10 CIWA 13.SUBUTEX/VALIUM TAPER IN PROGRESS. PRN CLONIDINE,ROBAXIN AND MOTRIN GIVEN TO MANAGE S/S OF W/D. ENCOURAGED INCREASED FLUIDS FOR HYDRATION. ENCOURAGED GROUP ATTENDANXCE TO IMPROVE COPING SKILLS AND PREVENT RELAPSE. WILL CONTINUE TO MONITOR.
[2018-04-14] MEDS ORDERED: BUPRENORPHINE HCL 2 MG TAB.SUBL SL SCH (09:00)
[2018-04-14] MEDS: MULTIVITAMINS,THERAPEUTIC TABLET PO SCH (09:02)
[2018-04-14] MEDS: GABAPENTIN 300 MG CAPSULE PO SCH ×3 (09:02→17:00)
[2018-04-14] MEDS: DIAZEPAM 5 MG TABLET PO SCH ×4 (09:02→20:50)
[2018-04-14] MEDS: CLONIDINE HCL 0.1 MG TABLET PO PRN (09:02)
[2018-04-14] MEDS: FOLIC ACID 1 MG TABLET PO SCH (09:02)
[2018-04-14] MEDS: THIAMINE HCL 100 MG TABLET PO SCH (09:02)
--- NOTE | 2018-04-14 09:15 | NUR ---
Pt states the Clonidine,Robaxin and Motrin was effective. h/a now 2/10 on pain scale.Chills ,sweats and body aches reduced.
[2018-04-14] MEDS: IBUPROFEN 600 MG TABLET PO PRN (10:01)
[2018-04-14 12:00] VITALS: BP 103/61
[2018-04-14] MEDS: BUPRENORPHINE HCL 2 MG TAB.SUBL SL SCH ×2 (15:00→20:50)
[2018-04-14 16:00] VITALS: BP 122/70
--- NOTE | 2018-04-14 16:33 | NUR ---
1500 Subutex held as Pt. is asleep. 1600 COWS and CIWA deferred . Respirations even and unlabored. bed locked and low.Call alexis in reach. Will continue to monitor and offer support.
--- NOTE | 2018-04-14 18:27 | NUR ---
1700 meds held as Pt is sleeping. Bed locked and low. Call alexis in reach. Will continue to monitor and offer support.
--- NOTE | 2018-04-14 18:28 | NUR ---
End Of Shift: Pt continues on Valium/Subutex taper to manage s/s of w/d which include anxiety,sweats,chills, restlessness and fatigue.Pt is easily agitated and has an irritable mood. last COWS 9 and CIWA 11 at noon. PRN Motrin,Robaxin and Clonidine given and effective to assist in managing symptoms.1500 meds held and 1700 meds held as Pt has been asleep for the last few hours. COWS and CIWA deferred at 1600 as well. He did not attended some groups and was compliant with increased fluids. [facility]
--- NOTE | 2018-04-14 19:30 | NUR ---
START OF SHIFT Received 23 year old male patient admitted on 04/11/18 for Klonopin, Heroin, and Methamphetamine withdrawal. Pt is alert and oriented x4. He is noted with anxiety, restlessness, and agitation. He is noted with flat affect and withdrawn and suspicious behavior. He complains of sweats/chills, body aches, lightheadedness, and stomach cramps. He is currently receiving a 5 day Subutex and 5 day Valium taper and tolerating well. Per endorsement, pt's 1700 medications were held d/t pt was asleep. Breathing is even and unlabored, safety measures in place. Will monitor.
[2018-04-14 20:00] VITALS: BP 109/76
[2018-04-14] MEDS: ARIPIPRAZOLE 5 MG TABLET PO SCH (20:49)
[2018-04-14] MEDS: QUETIAPINE FUMARATE 200 MG TABLET PO SCH (20:50)
[2018-04-15] VITALS: BP 112/68
--- NOTE | 2018-04-15 | NUR ---
COWS/CIWA DEFERRED 0000 COWS and CIWA Deferred d/t pt is lying in bed with eyes closed noted to be asleep. Breathing even and unlabored, safety measures in place. Will continue to monitor.
--- NOTE | 2018-04-15 00:30 | NUR ---
MD COMMUNICATION Pt complained of right wrist pain related to IV drug use. Area is warm to touch. Pt was seen and examined by Dr. Funes with new order for Bactrim DS PO BID x1 week. Order noted and carried out.
--- NOTE | 2018-04-15 04:00 | NUR ---
VITALS REFUSED, COWS/CIWA DEFERRED 0400 vitals refused. COWS and CIWA deferred d/t pt lying in bed with eyes closed noted to be asleep. Breathing is even and unlabored, safety measures in place. Will monitor.
--- NOTE | 2018-04-15 07:30 | NUR ---
Start of Shift Note Pt is a 23 year old male patient admitted on 04/11/18 for Klonopin, Heroin, and Methamphetamine withdrawal. Pt remains alert and oriented x4. He was noted with anxiety, restlessness, and agitation. He complained of sweats/chills, body aches, lightheadedness, runny nose, watery eyes, and stomach cramps during the shift. He continues on a 5 day Subutex and 5 day Valium taper and is tolerating well. He had complaints of right wrist pain d/t IV drug use, site was noted to be warm to touch. with new order for Bactrim DS PO BID x 1 week. He slept a total of 6 hrs, Intake: 596 mL,Void:x1, BM: 0, COWS:10, CIWA:12 at 1999. Breathing is even and unlabored, safety measures in place. Will endorse.
[2018-04-15 08:00] VITALS: BP 111/57
[2018-04-15] MEDS: MULTIVITAMINS,THERAPEUTIC TABLET PO SCH (08:55)
[2018-04-15] MEDS: THIAMINE HCL 100 MG TABLET PO SCH (08:56)
[2018-04-15] MEDS: SULFAMETH/TRIMETH 800/160 MG TABLET PO SCH ×2 (08:56→21:02)
[2018-04-15] MEDS: DIAZEPAM 5 MG TABLET PO SCH ×3 (08:56→21:02)
[2018-04-15] MEDS: BUPRENORPHINE HCL 2 MG TAB.SUBL SL SCH ×3 (08:56→21:02)
[2018-04-15] MEDS: FOLIC ACID 1 MG TABLET PO SCH (08:56)
[2018-04-15] MEDS: GABAPENTIN 300 MG CAPSULE PO SCH ×3 (08:56→17:30)
[2018-04-15] MEDS: IBUPROFEN 600 MG TABLET PO PRN (09:12)
--- NOTE | 2018-04-15 09:12 | NUR ---
PRN Medication During morning medication pass pt. complained of 7/10 right wrists pain. Gave pt. motrin 600 mg at this time. Will continue to monitor pt.s behavior for medication effectiveness and safety.
--- NOTE | 2018-04-15 10:12 | NUR ---
PRN Re-Assessment Medication effective. Pt. reports right wrists pain 11/22. Will continue to monitor pt.'s behavior for safety.
[2018-04-15] MEDS: buPROPion XL 150 MG TAB.SR.24H PO SCH (12:03)
[2018-04-15 12:26] VITALS: BP 125/74
[2018-04-15 16:00] VITALS: BP 117/69
--- NOTE | 2018-04-15 19:02 | NUR ---
End Of Shift Note Pt is a 23 year old male patient admitted on 04/11/18 for the medically managed withdrawal from Benzodiazepines, opiates and Methamphetamine. Pt. placed on a 5 day subutex and valium tapers. Pt. remained a/o x 4 throughout shift. He was continually noted with anxiety, restlessness, and agitation. Pt. continued to complain of right wrist pain d/t IV drug use, site was noted to be warm to touch. aware and ordered Bactrim DS PO BID x 1 week. PRN Motrin given for right wrists pain. Pt. able to be redirected at this time. Pt. compliant with treatment plan and medication regiment. Last COWs 11 and CIWA 13 at 1600. Safety measures in pain. Will endorse pt.s behavior to oncoming shift.
--- NOTE | 2018-04-15 19:05 | NUR ---
Start of shift note Received report from day shift nurse. Pt is a 23 yo male, A+Ox4, presenting to [facility] for Benzo/Opiate/Meth withdrawal. Pt noted with anxiety, agitation, and restlessness. Pt has HX of Bipolar and depression which will be monitored during shift. Pt is on 5 day Subutex and 5 day Valium tapers, tolerated well. Respirations even and unlabored. Will continue to monitor.
[2018-04-15 20:10] VITALS: BP 124/77
[2018-04-15] MEDS: QUETIAPINE FUMARATE 200 MG TABLET PO SCH (21:02)
[2018-04-15] MEDS: ARIPIPRAZOLE 5 MG TABLET PO SCH (21:02)
[2018-04-16 00:12] VITALS: BP 122/73
[2018-04-16 04:11] VITALS: BP 125/78
--- NOTE | 2018-04-16 07:00 | NUR ---
End of shift note Pt was continuously noted with agitation, restlessness, and anxiety. Pt remained in room for majority of shift except to go smoke on smoking patio and to get food from kitchen. Pt remained cooperative and compliant with all aspects of treatment. Pt was not given any PRN medications during shift. Pt is on 5 day Subutex and 5 day Valium tapers, tolerated well. Pt slept for a total of 8 HRS. Last COWS: 8 and Last CIWA: 10 @0400. Respirations even and unlabored. Will endorse to day shift nurse.
--- NOTE | 2018-04-16 07:30 | NUR ---
Start of Shift. Pt. is a 23 y/o male admitted for the medically managed withdrawal from Benzodiazepines, opiates, and methamphetamine salts. Pt. is on his last day of his 5 day subutex and valium tapers. Endorse pt.s behavior from previous shift was continuously anxious, restless and agitated. Received pt. in room. Pt. in laying bed with eyes closed. Pt. arousable to name and touch. Pt. appears disheveled with dark rings around his eyes. Educated pt. on treatment plan and medication regiment. Pt slept for a total of 8 HRS. Last COWS: 8 and Last CIWA: 10 @0400. Respirations even and unlabored. Will continue to monitor pt.s behavior for safety.
[2018-04-16 08:00] VITALS: BP 100/53
[2018-04-16] MEDS: SULFAMETH/TRIMETH 800/160 MG TABLET PO SCH ×2 (08:42→20:06)
[2018-04-16] MEDS: buPROPion XL 150 MG TAB.SR.24H PO SCH (08:42)
[2018-04-16] MEDS: FOLIC ACID 1 MG TABLET PO SCH (08:42)
[2018-04-16] MEDS: THIAMINE HCL 100 MG TABLET PO SCH (08:42)
[2018-04-16] MEDS: DIAZEPAM 5 MG TABLET PO SCH ×2 (08:42→20:06)
[2018-04-16] MEDS: MULTIVITAMINS,THERAPEUTIC TABLET PO SCH (08:42)
[2018-04-16] MEDS: GABAPENTIN 300 MG CAPSULE PO SCH ×3 (08:42→16:31)
[2018-04-16] MEDS ORDERED: BUPRENORPHINE HCL 2 MG TAB.SUBL SL SCH (09:00)
[2018-04-16 12:00] VITALS: BP 126/76
[2018-04-16] MEDS: IBUPROFEN 600 MG TABLET PO PRN (12:05)
--- NOTE | 2018-04-16 12:05 | NUR ---
PRN Medication Pt. complain of 8/10 right wrists pain. Pt. given Motrin at this time. Will continue to monitor pt.'s behavior for safety and medication effectiveness.
--- NOTE | 2018-04-16 13:05 | NUR ---
PRN Re-Assessment Pt. states "my wrists still hurts but not as much anymore maybe a 01/20. " MD aware of pt.'s right wrists pain and pt. is currently taking P.O. antibiotics for possible infection. Medication effective. Will continue to monitor pt.'s behavior for safety.
[2018-04-16] MEDS: HYDROXYZINE PAMOATE 25 MG CAPSULE PO PRN (14:19)
[2018-04-16] MEDS: CLONIDINE HCL 0.1 MG TABLET PO PRN (14:19)
--- NOTE | 2018-04-16 14:19 | NUR ---
PRN Medication Pt. in room complaining of anxiety. Pt. presents as restless with a depressed affect. At this time gave pt. clonidine and vistaril. Will continue to monitor pt.'s behavior for safety, and medication effectiveness.
--- NOTE | 2018-04-16 15:21 | NUR ---
PRN Re-Assessment Pt. in bed with eyes closed. Breathing even and regular. No signs of acute distress noted. Medication effective. Will continue to monitor pt.'s behavior for safety.
[2018-04-16 16:00] VITALS: BP 111/69
--- NOTE | 2018-04-16 19:11 | NUR ---
End of Shift. Pt. is a 23 y/o male admitted for the medically managed withdrawal from Benzodiazepines, opiates, and methamphetamine salts. Pt. completed his Subutex and Valium tapers this morning. Throughout shift pt. has been focused on his medication. Pt. stated I dont want stop taking Subutex, I want it for maintenance. aware and spoke with pt. regarding treatment plan. Pt. remains focused on his medication regiment. Pt. encouraged to verbalize his concerns and emotions. Pt. continually noted as anxious, irritable, with a depressed affect. Pt. reports feeling chills, and increased anxiety. Educated pt. on treatment plan and medication regiment. PRN Motrin Clonidine, and Vistaril given during shift for s/s of withdrawal. Last COWS: 10 and Last CIWA: 10 @1600. Safety measures in place. Will endorse pt.s care to oncoming shift.
--- NOTE | 2018-04-16 19:12 | NUR ---
Start of shift note Received report from day shift nurse. Pt is a 23 yo male, A+Ox4, presenting to [facility] for Benzo/Opiate/Meth withdrawal. Pt noted with agitation, anxiety, and restlessness. Pt has HX of bipolar disorder and depression which will be monitored during shift. Pt is on 5 day Subutex and 5 day Valium tapers, tolerated well. Respirations even and unlabored. Will continue to monitor.
[2018-04-16] MEDS: QUETIAPINE FUMARATE 200 MG TABLET PO SCH (20:06)
[2018-04-16] MEDS: ARIPIPRAZOLE 5 MG TABLET PO SCH (20:06)
[2018-04-16 20:10] VITALS: BP 113/69
[2018-04-17 00:10] VITALS: BP 115/74
[2018-04-17 04:14] VITALS: BP 117/78
--- NOTE | 2018-04-17 06:56 | NUR ---
End of shift note Pt was continuously noted with anxiety, agitation, and restlessness. Pt remained in room for majority of shift except to get food from kitchen. Pt remained cooperative and compliant with all aspects of treatment. Pt was not given any PRN medications during shift. Pt is on 5 day Subutex and 5 day Valium tapers, tolerated well. Pt slept for a total of 9 HRS. Last COWS: 9 and Last CIWA: 9 @0400. Respirations even and unlabored. Will endorse to day shift nurse.
--- NOTE | 2018-04-17 07:30 | NUR ---
Start of Shift Ios Developer received report on 23 year old male admitted to [facility] on 04/11/18 for medical management of Benzodiazepine, Opiate and Methamphetamine withdrawals. Pt endorses NKA, full code and regular diet. Pt denies PMH, no seizure history and endorses PPH of Bipolar DO and depression. Pt completed Subutex and Valium tapers last evening and is tolerating well, last COWS 9 and CIWA 9 at 0400. No PRN medication administered on NOC, per report. Ios Developer encounters pt in pts room. Pt resting with eyes closed, even and unlabored respirations. Bed in low position with wheels locked and side rails up x2. Will continue to monitor, support and encourage according to plan of care.
[2018-04-17 08:32] VITALS: BP 89/50
[2018-04-17] MEDS: THIAMINE HCL 100 MG TABLET PO SCH (09:08)
[2018-04-17] MEDS: FOLIC ACID 1 MG TABLET PO SCH (09:08)
[2018-04-17] MEDS: MULTIVITAMINS,THERAPEUTIC TABLET PO SCH (09:08)
[2018-04-17] MEDS: SULFAMETH/TRIMETH 800/160 MG TABLET PO SCH ×2 (09:09→21:38)
[2018-04-17] MEDS: GABAPENTIN 300 MG CAPSULE PO SCH ×3 (09:09→16:37)
[2018-04-17] MEDS: buPROPion XL 150 MG TAB.SR.24H PO SCH (09:09)
--- NOTE | 2018-04-17 09:29 | NUR ---
Endorsement of Care Endorsed care of 23 year old male admitted to [facility] on 04/11/18 for medical management of Benzodiazepine, Opiate and Methamphetamine withdrawals. Pt endorses NKA, full code and regular diet. Pt denies PMH, no seizure history and endorses PPH of Bipolar DO and depression. Pt completed Subutex and Valium tapers last evening and is tolerating well, last COWS 7 and CIWA 7 at 0830. No PRN medication administered by this insurance underwriter. Pt is calm and cooperative, with a flat affect and depressed mood. Linear thought process and clear speech pattern. A/O x4 and makes needs known. Bed in low position with wheels locked and side rails up x2.
--- NOTE | 2018-04-17 09:30 | NUR ---
ASSUMED CARE assumed care for patient, patient endorsement report received from night order selector nurse, all pertinent information was discussed. will continue to monitor closely. safety measures in place.
[2018-04-17] MEDS: HYDROXYZINE PAMOATE 25 MG CAPSULE PO PRN ×2 (10:03→18:13)
--- NOTE | 2018-04-17 10:03 | NUR ---
PRN VISTARIL Patient complained of increase anxiety, provided with non pharmacological interventions with no relief, administered vistaril as ordered, will monitor effectiveness of medication.
--- NOTE | 2018-04-17 11:03 | NUR ---
VISTARIL REASSESSMENT Medication effective, decrease in anxiety, will conitnue to monitor. safety measures in place.
[2018-04-17 13:03] VITALS: BP 130/86
[2018-04-17 16:45] VITALS: BP 128/84
--- NOTE | 2018-04-17 18:13 | NUR ---
PRN VISTARIL Patient complained of increase anxiety, provided with non pharmacological interventions with no relief, administered vistaril 25mg PO as ordered, endorsed to shift production supervisor nurse to f/u on effectiveness of medication.
--- NOTE | 2018-04-17 19:00 | NUR ---
END OF SHIFT Patient alert and oriented x4. Assumed care for patient at 0930, patient presented with: c/o chills, mild bone and joint aches, tremors that can be felt but not seen, and irritable. Patient completed taper and is scheduled to be discharged tomorrow. Detox medication effective at reducing withdrawal symptoms. Patient with admitting Dx: opiate/BZO withdrawal. Patient with last cow score of: 5, and last ciwa score of: 7. Patient denies any SI/HI. During shift Patient was noted with avoidant eye contact, has sad and worried facial expression, flat and labile affect, disheveled hygiene, encouraged maintenance of personal space and hygiene. Encouraged patient to develop coping skills and utilization of non pharmacological interventions. Patient received PRN Vistaril x2 during shift, endorsed to slot shift manager to monitor effectiveness of dose administered at 1813, first dose medication was effective. Patients safety measures are in place. call light with in reach at all times. patient endorsed to slot shift manager nurse, all pertinent information discussed.
[2018-04-17 20:00] VITALS: BP 125/66
--- NOTE | 2018-04-17 20:00 | NUR ---
Reassessment of anxiety Px was seen at this time for reassessment of anxiety in the effectiveness of Vistaril given at 1812. Px stated that his anxiety is 5-6/10 and Vistaril was effective according to the px.
--- NOTE | 2018-04-17 20:00 | NUR ---
Start of Shift Note Received 23 y/o male px, admitted for medically supervised withdrawal from benzo and opiate. Px is to be D/C tomorrow 04/18/2018. Px completed 5 day Valium and 5 day Subutex taper. Px tolerated them. Last reported COWS 7 and CIWA 7 by AM shift nurse. During the rounds at 1999, px is awake on bed in fowlers position watching TV. Px appears anxious, disheveled, and unshaven with long and dirty finger nails. Unfinished snacks and drinks noted all over the bed side table and shelf. Unfolded clothes also noted on top of the cabinet. Px has good eye contact. Px stated "My anxiety is about 5-6/10 and I still have pain on my right hand. Can I have my Seroquel later around 10PM?" Bilateral hand tremors noted. Bed on lowest position, side rails up padded and call light within reach. Well continue to monitor.
[2018-04-17] MEDS: IBUPROFEN 600 MG TABLET PO PRN (21:38)
[2018-04-17] MEDS: ARIPIPRAZOLE 5 MG TABLET PO SCH (21:38)
[2018-04-17] MEDS: QUETIAPINE FUMARATE 200 MG TABLET PO SCH (21:38)
--- NOTE | 2018-04-17 21:38 | NUR ---
PRN Ibuprofen Px received Ibuprofen 600 mg/tab, 1 tab PO as PRN medication for his pain 05/22 as stated on right hand due to IV drug use. We'll continue to monitor.
--- NOTE | 2018-04-17 22:40 | NUR ---
Reassessment of Pain Px stated that his pain on his right hand improved from 8/10 to 5/10. We'll continue to monitor.
[2018-04-18] VITALS: BP 121/67
[2018-04-18 04:00] VITALS: BP 118/66
--- NOTE | 2018-04-18 07:10 | NUR ---
End of Shift Note Px is to be D/C today, 04/18/2018. During the rounds at 2138, px received Motrin 600 mg PO for right hand pain of 8/10 as verbalized. It was effective. Px oral intake is 1500 ml, voided 3x, without BM. Px slept for 7 hours. Last COWS 7 and CIWA 10. At 0630, px is still asleep on bed in left side lying position. Bed on lowest position, side rails up padded and call light within reach. Px endorsed to AM shift nurse. Well continue to monitor.
--- NOTE | 2018-04-18 07:24 | NUR ---
BEGINNING OF SHIFT Patient endorsement report received from velvet steamer nurse, all pertinent information was discussed. patient with admitting dx: opiate/bzo withdrawal. Patient completed 5 day subutex and valium taper as ordered, and is scheduled to be discharged this morning. patients vital signs WNL. per velvet steamer patient received PRN: Motrin, medication was effective. Patient slept for 8 hours. and last cow score of: 7, and last ciwa score of: 10. Patient received in bed, with eyes closed, respirations even and unlabored. will educate regarding plan of care for the day and medication regimen. safety measures are observed and in place. will continue to monitor.
[2018-04-18 08:06] VITALS: BP 102/61
[2018-04-18] MEDS: buPROPion XL 150 MG TAB.SR.24H PO SCH (08:52)
[2018-04-18] MEDS: SULFAMETH/TRIMETH 800/160 MG TABLET PO SCH (08:52)
[2018-04-18] MEDS: THIAMINE HCL 100 MG TABLET PO SCH (08:52)
[2018-04-18] MEDS: MULTIVITAMINS,THERAPEUTIC TABLET PO SCH (08:53)
[2018-04-18] MEDS: FOLIC ACID 1 MG TABLET PO SCH (08:53)
[2018-04-18] MEDS: GABAPENTIN 300 MG CAPSULE PO SCH (08:53)
[2018-04-18] MEDS ORDERED: ARIP5TAB10 PO (09:19)
[2018-04-18] MEDS ORDERED: GABA-534 PO (09:19)
[2018-04-18] MEDS ORDERED: BUPR-96 PO (09:19)
--- NOTE | 2018-04-18 10:15 | NUR ---
DISCHARGE Patient off the unit at 1015 in stable condition, and in no apparent acute distress. Prior to discharge patient was provided with education and teaching regarding all discharge instructions with good verbal understanding. Patient noted self motivated towards sobriety. Patients vital signs WNL. Patient with last cow score of: 5. Patient discharged to [facility]. Patients home medications, discharge instructions and prescriptions were placed in patients personal duffel bag. Patient off the unit at 1015.
== END 2018-04-18 10:15 | disposition home or self-care (01) | DRG 895 ==
LOC: SRC 09:10
PROVIDERS: ADMIT Family Medicine; ATTEND Family Medicine Addiction Medicine
PROC: HZ2ZZZZ Detoxification Services for Substance Abuse Treatment (ICD-10-PCS; principal; 2018-04-11)
PROC: HZ31ZZZ Individual Counseling for Substance Abuse Treatment, Behavioral (ICD-10-PCS; principal; 2018-04-11)
PROC: HZ41ZZZ Group Counseling for Substance Abuse Treatment, Behavioral (ICD-10-PCS; 2018-04-15)
DX: F11.23 Opioid dependence with withdrawal (principal); F31.60 Bipolar disorder, current episode mixed, unspecified; F15.20 Other stimulant dependence, uncomplicated; L03.113 Cellulitis of right upper limb; F13.20 Sedative, hypnotic or anxiolytic dependence, uncomplicated; F10.239 Alcohol dependence with withdrawal, unspecified; Y90.9 Presence of alcohol in blood, level not specified; Z79.899 Other long term (current) drug therapy; I80.8 Phlebitis and thrombophlebitis of other sites; S61.531S Puncture wound without foreign body of right wrist, sequela; X78.8XXS Intentional self-harm by other sharp object, sequela; F12.20 Cannabis dependence, uncomplicated; E86.0 Dehydration; K59.00 Constipation, unspecified
CPT/HCPCS: 36415; 70030-TC; 73130; 80307; 80324; 80349; 80361; 83690; 83735; 84443; 85025; 86580; 86592; 86705; 86803; 87340; 87806; A4663; G0480

== ENCOUNTER 2018-08-05 15:05 | Inpatient (IN) | payer OTHER ==
[~2018-08-05 15:05] MED LIST changes: +ARIP5TAB10 PO; +BUPR-96 PO; -CLON0.1T14 PO; -DICY20TA28 PO; -DIPH50CA37 PO; -HYDR-3895 PO; -IBUP-1955 PO; -METH-406 PO
--- NOTE | 2018-08-05 16:15 | NUR ---
PRE ASSESSMENT: Pt seen in intake A/O X 4. His affect is angry and mood congruent. he appeared preoccupied. He states he needs to wrap things up and needs to leave but will come back at 8pm tonight. He states he will not use drugs and signed an AMA form. Charge nurse made aware.
== END 2018-08-05 18:23 | disposition left against medical advice (07) | DRG 894 ==
LOC: SRC 16:09
PROVIDERS: ADMIT Family Medicine Addiction Medicine; ATTEND Family Medicine Addiction Medicine
DX: F19.239 Other psychoactive substance dependence with withdrawal, unspecified (principal); Z75.3 Unavailability and inaccessibility of health-care facilities

== ENCOUNTER 2018-08-05 22:36 | Inpatient (IN) | payer OTHER ==
[~2018-08-05] VITALS: Ht 188 cm; Wt 83.0 kg
--- NOTE | 2018-08-06 00:10 | NUR ---
Pre-admission note Patient is a 23 year old male seen at intake office and he was alert oriented to time, place, and situation. Patient is fully ambulatory with a steady gait. Patient is anxious, agitated and restless. Patient is presenting intoxicated. Patient is here for Benzo and Opiate withdrawal. Patient reported he used Xanax and Heroin today 08/05/2018. Patient has a history of ADHD, Bipolar, Depression, and Anxiety. Initial vital signs are: BP 126/79, HR 102, RR 18, T 98.6, and O2 sat 96% on room air, patient denies pain. Will continue plan of care upon arrival on unit.
[2018-08-06] MEDS ORDERED: ONDANSETRON 4 MG/2 ML VIAL IM PRN (00:30)
[2018-08-06] MEDS ORDERED: LORAZEPAM 2 MG/1 ML VIAL IM PRN ×2 (00:30→14:15)
[2018-08-06] MEDS ORDERED: BUPRENORPHINE HCL 2 MG TAB.SUBL SL PRN ×2 (00:30→14:15)
[2018-08-06] MEDS ORDERED: ACETAMINOPHEN 325 MG TABLET PO PRN (00:30)
[2018-08-06] MEDS ORDERED: DIAZEPAM 10 MG TABLET PO PRN ×3 (00:30→14:15)
[2018-08-06] MEDS ORDERED: LOPERAMIDE HCL 2 MG CAPSULE PO PRN ×2 (00:30)
[2018-08-06] MEDS ORDERED: MAG HYDROX/AL HYDROX/SIMETH 30 ML LIQUID UDC PO PRN (00:30)
[2018-08-06] MEDS ORDERED: MIRALAX 17 GM POWD.PACK PO PRN (00:30)
[2018-08-06] MEDS ORDERED: DIAZEPAM 5 MG TABLET PO PRN ×2 (00:30→14:15)
[2018-08-06] MEDS ORDERED: DICYCLOMINE HCL 20 MG TABLET PO PRN (00:30)
[2018-08-06] MEDS ORDERED: ONDANSETRON ODT 4 MG TAB.RAPDIS SL PRN (00:30)
[2018-08-06] MEDS ORDERED: MAGNESIUM HYDROXIDE 30 ML LIQUID UDC PO PRN (00:30)
--- NOTE | 2018-08-06 00:30 | NUR ---
Initial COWS and CIWA Patient was presenting with anxiety, agitation, and restlessness. Patients COWs was 7 and CIWA 4. Safety measures in please, bed lock in low position, side rails up x2, and call light within reach. Will continue to monitor.
--- NOTE | 2018-08-06 00:30 | NUR ---
Admission Note Patient is a 23 year old male admitted on 08/06/2018 at 0025. Patient is here at [facility] for medically supervised benzo and opioid withdrawal. He is awake, alert, and oriented x4. Patient reports he has been using Xanax, Klonopin, Heroin, and Cocaine. Patient is currently presenting intoxicated and is able to answer questions regarding past medical history. Patient has a history of ADHD, Bipolar, Depression, and Anxiety. Initial CIWA is 4 and COWS is 7. Patient also admits smoking 1 pack a day of cigarettes since age 17 years old. Patient follows a regular diet at home and is allergic to Kiwi. Patient is a full code. Patient reports typical withdrawal symptoms consist of hot and cold flashes, seizures, strong skin stimulation, shakings, tremors and auditory hallucination. Patient reports he has a seizure on 08/01/2018 as a result from Xanax withdrawal. Patient denies withdrawal induced cardiac complications, and withdrawal induced delirium. Patient admits overdosing multiple times and the most recent was on 07/31/2018 and medical treatment was received at [facility]. Patient did not want to disclose more information for overdosing and blackouts. Substance Abuse History: 1) Xanax: Patient stated that he was using about 12 mg PO daily for 2 weeks. He first started using when he was 17 years old. Patient stated that his last use was 10 mg PO today 08/05/2018 at 1800 and is currently intoxicated. 2) Klonapin: Patient stated he was using 2 mg-10 mg PO daily for 5 weeks. He stated he starting using when he was 17 years old. Patient last used was 2mg PO on 08/04/2018. 3) Heroin: Patient stated that he was using 1 grams IV daily for 3 weeks. He started using at the age of 18. Patient stated that his last use was of 1mg IV today 08/05/2018 at 1200. 4) Cocaine: Patient stated he was using 0.5 gram IV for 2 weeks. He stated he was been suing since he was 13 years old. Patient states he last used 0.5 gram IV on 08/01/2018. Patient stated that he has been to multiple treatment centers and has been unsuccessful. He reports that he has been to over 10 treatment centers including [facility] 3 times. His most recent treatment center was on the end of June 2018 in a residential living called [facility], he reports he was there for 10 days. Patient says he relapse right after he left the treatment center. Patients PCP is Jun Torres. He denies currently having a psychiatrist. Patient has been prescribed medications for her current diagnoses as followed Seroquel 200 mg HS, Amplified, and Vitamin B12. Patient did not bring any home medications. Patient denies family history of drug use. Patient states that he graduate high school and he is currently self-employed. Patient has never been on a 5150. Patient admits that due to his substance abuse, he has faced legal consequences that have placed him in corrective facilities. When asked why he wanted to stop using, he stated "I am facing multiple charges and mistakes are so high, I just want to be clean to work on new projects. I dont want to be paranoid every time I see a molecular spectroscopist, thinking they will arrest me. Patient added: I want a sober life. Patient is 6'2 and weights 183 lbs per standing scale. Patient's skin is intact, dry, and warm to touch. Patient has a small laceration on left finger nail bed, pictures were taken. Patient also has a small laceration on the back on the head, will endorse to day time nurse to take photo. Capillary refill is <3 seconds. PERRLA is present with pupils at 4 mm bilaterally. Lungs are clear to auscultation bilaterally. Abdomen is soft and non-distended and bowel sounds are present in all 4 quadrants. Patient reports that her last bowel movement was on 08/05/2018. Initial vital signs are as follows: BP 126/79, HR 102, RR 18, T 98.6, O2Sat 96% on RA. Patient denies any pain. Breathing is even and unlabored. No signs and symptoms of respiratory distress. Patient was oriented to unit at 0025. Patient was provided instructions regarding unit policies and rules. He provided a urine sample at intake office; blood work is still pending. Fall and seizure precautions initiated and maintained. Safety measures in place, bed in low and locked position, side rails up x2, and call light within reach. Will continue to monitor.
[2018-08-06 01:04] LABS: *AMPHETAMINE, URINE POSITIVE (NEGATIVE); *BARBITURATE, URINE NEGATIVE (NEGATIVE); *CANNABINOID, URINE POSITIVE (NEGATIVE); *COCCAINE, URINE NEGATIVE (NEGATIVE); *OPIATE, URINE POSITIVE (NEGATIVE); *PHENCYCLIDINE SCREEN,URINE NEGATIVE (NEGATIVE)
[2018-08-06] MEDS: diphenhydrAMINE 50 MG CAPSULE PO PRN (02:39)
[2018-08-06] MEDS: HYDROXYZINE PAMOATE 25 MG CAPSULE PO PRN (02:39)
--- NOTE | 2018-08-06 02:39 | NUR ---
PRN Benadryl and Vistaril Patient was presenting with difficulty falling asleep, and anxiety. Adminsitered PRN Benadryl, Clonidine, and Vistaril and was well tolerated. Will monitor patient for any s/s of adverse effects. Safety measures in place, will continue to monitor.
--- NOTE | 2018-08-06 03:39 | NUR ---
PRN Benadryl and Vistaril Reassessment Patient is noted in bed resting with eyes closes, breathing is even and unlabored. Medication was noted to be successful. Safety measures in place, will continue to monitor.
--- NOTE | 2018-08-06 04:00 | NUR ---
CIWA and COWS Deferred Patient was noted in bed resting with eyes closed, breathing even and unlabored. Per protocol CIWA and COWS is to be assessed while patient is awake. Safety measures in please, bed lock in low position, side rails up x2, and call light within reach. Will continue to monitor.
--- NOTE | 2018-08-06 06:57 | NUR ---
End of shift Patient is a 23 year old male admitted on 08/06/2018. Patient is here at [facility] for medically supervised Benzo and Opioid withdrawal. Patients last CIWA was 4 and COWS was 7. Patient is on Fall and Seizure precautions. Will endorse to day shift nurse to collect photo of a small lesion on the back of the head. Patient had PRN Benadryl and Vistaril during this shift. Patient is compliant and was intoxicated during admission but was able to answered past medical history questions. Patient slept for 5 hours and had a total intake of 709 ml. Patient voided x1 and had no bowel movements during this shift. Safety measures in please, bed lock in low position, side rails up x2, and call light within reach. Will endorse to day shift.
[2018-08-06 08:00] VITALS: BP 107/61
--- NOTE | 2018-08-06 08:00 | NUR ---
Start of Shift Notes: Patient is a 23 year old male admitted during the night for BZO and opiate withdrawal. No taper ordered at this time. Per night nurse, patient was given PRN Benadryl and Vistaril. Last COWS 7 and CIWA 4. Slept for a total of 5 hours. Received patient in his room. Appears sedated, and hypersomnolent. Opens his eyes then falls back asleep. He is unable to carry on a conversation due to being sleep. Refused AM labs at this time. Educated patient on his current plan of care for the day and his medication regimen. Encouraged oral fluid intake and encouraged group participation to learn new skills to prevent relapse. All needs met and attended. Will continue to monitor closely.
[2018-08-06] MEDS: MULTIVITAMINS,THERAPEUTIC TABLET PO SCH (09:00)
--- NOTE | 2018-08-06 09:59 | NUR ---
MVI 1 tab at 0900 not administered/COWS/CIWA Deferred: Patient continues to appear sedated. Arousable to touch then falls back asleep. RR 16. O2 sat 96% via RA. MVI held. COWS/CIWA Deferred at this time.
[2018-08-06 12:00] VITALS: BP 110/63
--- NOTE | 2018-08-06 13:24 | NUR ---
COWS/CIWA Assessment: Patient woke up and reports complain of fatigue, facial flushing, restlessness, myalgia, diaphoresis, myalgia of 6 out of 10, chills, hot flashes, malaise and generalized discomfort. COWS 14/CIWA 14. Seen by Dr. Funes at this time. Patient will be starting a 3-day Valium and 3-day Subutex taper tomorrow AM.
[2018-08-06 13:48] LABS: BASOPHILS # (AUTO) 0.1 K/uL (0.0-8.0); EOSINOPHILS # (AUTO) 0.4 K/uL (0.0-0.7); EOSINOPHILS % (AUTO) 5.8 % (0.0-7.0); HEMATOCRIT 38.6 % (36.7-47.1); HEMOGLOBIN 13.2 g/dL (12.5-16.3); LYMPHOCYTES # (AUTO) 2.6 K/uL (20.0-40.0); MEAN CORPUSCULAR HEMOGLOBIN 27.8 uug (23.8-33.4); MEAN CORPUSCULAR HGB CONC 34 g/dL (32.5-36.3); MEAN CORPUSCULAR VOLUME 81.5 fL (73.0-96.2); MONOCYTES # (AUTO) 0.7 K/uL (2.0-10.0); MONOCYTES % (AUTO) 9.2 % (0.0-11.0); NEUTROPHILS # (AUTO) 3.7 K/uL (1.8-8.9); PLATELET COUNT (AUTO) 249 K/uL (152-348); RED BLOOD CELL COUNT(AUTO) 4.74 MIL/uL (4.06-5.63); WHITE BLOOD COUNT (AUTO) 7.5 K/uL (3.6-10.2)
[2018-08-06 13:55] LABS: ETHANOL < 3 MG/DL (0-0)
[2018-08-06 14:00] LABS: ALANINE AMINOTRANSFERASE 41 U/L (16-63); ALKALINE PHOSPHATASE 72 U/L (50-136); AMYLASE 30 U/L (25-115); ASPARTATE AMINOTRANSFERASE 36 U/L (15-37); BILIRUBIN,TOTAL 0.2 mg/dL (0.2-1.0); CARBON DIOXIDE 30 mmol/L (21-32); CHLORIDE 105 mmol/L (98-107); CREATININE 1.1 mg/dL (0.6-1.3); LIPASE 96 U/L (73-393); POTASSIUM 3.7 mmol/L (3.5-5.1); TOTAL PROTEIN, SERUM 7.6 g/dL (6.4-8.2); UREA NITROGEN, BLOOD 18 mg/dL (7-18)
[2018-08-06] MEDS: CLONIDINE HCL 0.1 MG TABLET PO PRN (14:08)
[2018-08-06] MEDS: METHOCARBAMOL 750 MG TABLET PO PRN (14:08)
[2018-08-06 14:11] LABS: THYROID STIMULATING HORMONE 2.598 mIU/mL (0.358-3.740)
[2018-08-06] MEDS: DIAZEPAM 10 MG TABLET PO PRN ×2 (14:12→20:36)
--- NOTE | 2018-08-06 14:12 | NUR ---
Valium 20 mg PO/Subutex 4 mg SL given: /, patient presented with increased gross tremors, diaphoresis, increased anxiety, agitation, myalgia, restlessness, fatigue and malaise. Medicated patient with Valium 20 mg PO and Subutex 4 mg SL as ordered. Will monitor for effectiveness. Addendum: 08/06/18 at 1415 by UMA NAGEL LVN Clonidine 0.1mg PO and Robaxin 750 mg PO was also administered.
[2018-08-06 14:13] LABS: GLUCOSE 49 mg/dL (74-106)
[2018-08-06] MEDS ORDERED: 3 DAY TAPER BUPRENORPHINE -SERENITY PROTOCOL SL PRN (14:15)
--- NOTE | 2018-08-06 14:17 | NUR ---
Therapist prompted client to attend all group therapy sessions.
--- NOTE | 2018-08-06 14:22 | NUR ---
critical lab value: received a call with blood glucose of 49, Dr. Funes aware and ordered to give pt orange juice
--- NOTE | 2018-08-06 14:42 | NUR ---
Re-assessment: Subutex COWS 10, patient appears less anxious, less restless. He continues to appear worried, irritable and diaphoretic. PRN Subutex effective in reducing patient's withdrawal symptoms.
[2018-08-06] MEDS: buPROPion XL 150 MG TAB.SR.24H PO SCH (14:45)
[2018-08-06] MEDS: GABAPENTIN 300 MG CAPSULE PO SCH ×2 (14:45→17:29)
--- NOTE | 2018-08-06 15:12 | NUR ---
Re-assessment: Valium, Clonidine, Robaxin CIWA 12. Patient appears more calm. He states intermittent perspiration are less. He reports pain level is now a 3 out of 10. PRN Valium, Clonidine and Robaxin were effective in reducing his withdrawal symptoms. Will continue to monitor.
--- NOTE | 2018-08-06 15:26 | NUR ---
Accucheck order: Patient will be on accucheck x 24 hours due to CL BS of 49. Patient will not be on any insulin. He continues to appear somnolent but arousable to his name and with tactile stimuli. No changes in LOC noted. No AV hallucinations noted.
[2018-08-06] MEDS: BLOOD SUGAR DIAGNOSTIC 1 EACH STRIP VI SCH ×2 (15:38→20:42)
--- NOTE | 2018-08-06 15:40 | NUR ---
BS result: Patient's blood sugar 107 per accucheck. No changes in LOC noted. Notified MD. VIERA made.
[2018-08-06 16:00] VITALS: BP 113/67
--- NOTE | 2018-08-06 16:28 | NUR ---
COWS/CIWA Assessment: COWS /CIWA 12. Patient complains of fatigue, and generalized discomfort. Facial flushing, restlessness, myalgia, diaphoresis, chills, hot flashes, malaise and hypersomnolence noted . Will continue to monitor.
--- NOTE | 2018-08-06 18:49 | NUR ---
End of Shift Notes: Patient was on PRNs today to manage symptoms related to opiate and BZO withdrawal. However, he will start his 3-day Valium and 3-day Subutex taper tomorrow AM. VS monitored closely. No significant abnormalities noted. Withdrawal symptoms were closely monitored. 0800 COWS/CIWA deferred due to patient as hypersomnolent and was asleep until 1230. At 1300, patient woke up and presented with restlnessness, chills, hot flashes, gross tremors, nasal stuffiness, myalgia and generalized discomfort resulting to a COWS of 14 and CIWA of 16. Medicated patient with Clonidine, Subutex 4 mg SL, Valium 20 mg and Robaxin at 1412. Last COWS 10/CIWA 12. Patient was unable to participate in group and activities due to his withdrawal symptoms. Labs drawn and noted with BS of 49CL. 10 oz of OJ given and notified MD with orders to start patient on accucheck x 24 hours with no insulin coverage. Last BS at 1530 was 107. No s/s of hypoglycemia noted. All needs met and attended. Will continue to monitor closely.
--- NOTE | 2018-08-06 18:54 | NUR ---
START OF SHIFT NOTE: Endorsed patient, 23 year male, presented for Benzodiazepines and Opioid withdrawal. Currently patient is on ordered PRN Medications. Tomorrow will be first scheduled day for ordered 4 Day Valium and 3 Days Subutex Tapers. Withdrawal symptoms will be closely monitoring. Patient is alert and oriented x4, presented with liable mood, and anxious affect. The most recent COWS=10 at 1600, CIWA=12 at 1600: Patient noted with moderate symptoms of withdrawal such as anxiety, agitation, irritability, nervousness, nasal congestion, generalized mild body aches, abdominal cramps, bilateral tremors, that can be felt but not observe, restlessness, and fatigue. PRN Medications was not administered during day shift were effective, per day shift nurse report. Patient encouraged to attend group activities. Encouraged to intake fluids as tolerated. Safe and calm environment provide. All needs met. Safety measures in place: Call light within reach, bed is in lowest position and locked, padded bed rails up x2. Will continue to monitor closely.
[2018-08-06 20:00] VITALS: BP 116/62
--- NOTE | 2018-08-06 20:00 | NUR ---
COWS/CIWA ASSESSMENT COWS=16, CIWA=17. Patient presented with moderate symptoms of withdrawal such as anxiety, agitation, irritability, nervousness, nasal congestion, generalized mild body aches, abdominal cramps, bilateral tremors, restlessness, fatigue., and yawning. PRN Valium 20 mg PO will be administered for CIWA=17 as ordered. Encouraged to intake fluids as tolerated. Re-assessment will be done in one hour. Safe and calm environment provide. All needs met. Safety measures in place: Call light within reach, bed is in lowest position and locked, padded bed rails up x2. Will continue to monitor closely.
[2018-08-06] MEDS: QUETIAPINE FUMARATE 200 MG TABLET PO SCH (20:24)
[2018-08-06] MEDS: ARIPIPRAZOLE 5 MG TABLET PO SCH (20:24)
--- NOTE | 2018-08-06 20:36 | NUR ---
PRN VALIUM PO ADMINISTRATION PRN Valium 20 mg PO administered at 2035 for CIWA=17. Patient tolerated well. Encouraged to intake fluids as tolerated. Re-assessment will be done in one hour. Safe and calm environment provide. All needs met. Safety measures in place: Call light within reach, bed is in lowest position and locked, padded bed rails up x2. Will continue to monitor closely.
--- NOTE | 2018-08-06 20:42 | NUR ---
ACCU-CHECK Accu-Check done as ordered. BS =106 mg/dl. Safe and calm environment provide. All needs met. Safety measures in place: Call light within reach, bed is in lowest position and locked, padded bed rails up x2. Will continue to monitor closely.
--- NOTE | 2018-08-06 21:36 | NUR ---
PRN RE-ASSESSMENT CIWA= 13. Patent resting on the bed , and appears less anxious, and less agitated. Patient reports, "Valium help to feeling better". PRN Valium 20 mg PO administered at 2009 for CIWA=17 was effective. Safe and calm environment provide. All needs met. Safety measures in place: Call light within reach, bed is in lowest position and locked, padded bed rails up x2. Will continue to monitor closely.
--- NOTE | 2018-08-07 | NUR ---
VS REFUSED, COWS AND CIWA DEFERRED VS refused and COWS/CIWA deferred for sleep. Patient will be assessed when patient is awake. Respirations are unlabored and even. RR=14. Safe and calm environment provided. All needs met. Safety measures in place: Call light within reach, bed is locked in the lowest position, and padded bed rails up bilaterally. Will continue to monitor.
--- NOTE | 2018-08-07 04:00 | NUR ---
VS REFUSED, COWS/CIWA DEFERRED VS refused and COWS/CIWA deferred for sleep. Patient will be assessed when patient is awake. Respirations are unlabored and even. RR=14. Safe and calm environment provided. All needs met. Safety measures in place: Call light within reach, bed is locked in the lowest position, and padded bed rails up bilaterally. Will continue to monitor.
[2018-08-07 05:15] VITALS: BP 116/73
--- NOTE | 2018-08-07 05:15 | NUR ---
COWS/CIWA ASSESSMENT COWS=12, CIWA=11: Patient experienced moderate symptoms of withdrawal such as anxiety, agitation, irritability, nervousness, nasal congestion, generalized mild body aches, stomach cramps, bilateral tremors, restlessness, sweating, myalgia, and fatigue. Encouraged to intake fluids as tolerated. Safe and calm environment provide. All needs met. Safety measures in place: Call light within reach, bed is in lowest position and locked, padded bed rails up x2. Will continue to monitor closely.
[2018-08-07] MEDS: CLONIDINE HCL 0.1 MG TABLET PO PRN (05:20)
--- NOTE | 2018-08-07 05:20 | NUR ---
PRN CLONIDINE PO ADMINISTRATION PRN Clonidine 0.1 mg PO administered at 0520 for anxiety as ordered. Patient tolerated well. Encouraged to intake fluids as tolerated. Safe and calm environment provide. All needs met. Safety measures in place: Call light within reach, bed is in lowest position and locked, padded bed rails up x2. Will continue to monitor closely.
--- NOTE | 2018-08-07 06:20 | NUR ---
PRN RE-ASSESSMENT Patient is sleeping on his side. Respirations are even and unlabored. PRN Clonidine 0.1 mg PO administered for anxiety at 0520 was effective. Safe and calm environment provide. All needs met. Safety measures in place: Call light within reach, bed is in lowest position and locked, padded bed rails up x2. Will continue to monitor closely.
[2018-08-07 07:06] LABS: HEPATITIS B SURFACE AG Negative (Negative)
--- NOTE | 2018-08-07 07:20 | NUR ---
END OF SHIFT NOTE: This report given for patient, 23 year male, scheduled to start today 4 Day Valium and 3 Days Subutex Tapers ordered for Benzodiazepines and Opioid withdrawal. Patient is alert and oriented x4, noted with liable mood, and anxious affect. VS and withdrawal symptoms was closely monitored. COWS=16, CIWA=17 at 1999. The last COWS=12, CIWA=11 at 0515: Patient experienced moderate symptoms of withdrawal such as anxiety, agitation, irritability, nervousness, nasal congestion, generalized mild body aches, stomach cramps, bilateral tremors, restlessness, sweating, myalgia, fatigue, and yawning. PRN Valium 20 mg PO administered for CIWA=17 at 2009, PRN Clonidine 0.1 mg PO administered at 0520 for anxiety, and were effective. Accu-Check done as ordered. BS =106 mg/dl. Patient remains compliant with treatment, medications, and diet regimen. Patient slept for 6 hours, intake 1,236 ml, voided x1. Encouraged to intake fluids as tolerated. Encouraged to attend group activities. Safe and calm environment provide. All needs met. Safety measures in place: Call light within reach, bed is in lowest position and locked, padded bed rails up x2. Endorsed to day shift nurse.
[2018-08-07] MEDS: BLOOD SUGAR DIAGNOSTIC 1 EACH STRIP VI SCH (07:30)
--- NOTE | 2018-08-07 07:30 | NUR ---
Start Of Shift Patient is a 23yr old male who was admitted to [facility] on 08/05/18 for a medically supervised withdrawal from Benzodiazepines( Xanax and Klonopin), Opiates ( Heroin) and also states he was using Cocaine, he has been placed on a 3 day Valium and 3 day Subutex taper starting today. PRN medications given on PM shift: Valium 20mg Po and Clonidine, he slept for 6 hrs and last COWS was 11 and CIWA 12. Currently he is in bed asleep, breathing even and unlabored, side rails up and call light within reach. Continue to follow MD plan of care and offer support and encouragement.
[2018-08-07 08:00] VITALS: BP 113/65
--- NOTE | 2018-08-07 08:00 | NUR ---
COWS 12 CIWA 14 Patient presents with increased anxiety and irritability, restlessness, diaphoresis , chills , agitation and lethargy Scheduled taper started with 10mg PO Valium and 4mg SL Subutex
[2018-08-07] MEDS: GABAPENTIN 300 MG CAPSULE PO SCH ×3 (08:08→17:36)
[2018-08-07] MEDS: BUPRENORPHINE HCL 2 MG TAB.SUBL SL SCH ×2 (08:08→20:41)
[2018-08-07] MEDS: MULTIVITAMINS,THERAPEUTIC TABLET PO SCH (08:08)
[2018-08-07] MEDS: buPROPion XL 150 MG TAB.SR.24H PO SCH (08:08)
[2018-08-07] MEDS: DIAZEPAM 10 MG TABLET PO SCH ×2 (08:08→20:39)
[2018-08-07] MEDS ORDERED: TUBERCULIN,PURIF.PROT.DERIV. 5 TU/0.1 ML TEST ID ONE (09:00)
[2018-08-07] MEDS ORDERED: 3 DAY TAPER OF VALIUM-SERENITY PROTOCOL PO PRN (09:00)
[2018-08-07] MEDS: METHOCARBAMOL 750 MG TABLET PO PRN (10:55)
[2018-08-07] MEDS: IBUPROFEN 400 MG TABLET PO PRN (10:55)
--- NOTE | 2018-08-07 10:55 | NUR ---
CIWA 22 Patient presents with sensitivity to light and sound, headache, body aches, decreased appetite, restlessness, diaphoresis/chills, generalized discomfort and pins and needles Valium 20mg PO given per CIWA > 16 protocol Robaxin 750mg PO and Motrin 400mg PO given for generalized aches 04/21
[2018-08-07] MEDS ORDERED: BLOOD SUGAR DIAGNOSTIC 1 EACH STRIP VI SCH (11:30)
--- NOTE | 2018-08-07 11:55 | NUR ---
PRN Reassess PRN Valium 20mg PO, Robaxin 750mg PO and Motrin 400mg PO given for increased anxiety, irritability, agitation and myalgias were effective per pt report
[2018-08-07 12:00] VITALS: BP 105/59
--- NOTE | 2018-08-07 12:00 | NUR ---
COWS 14 CIWA 17 Patient presents with increased anxiety and irritability, restlessness, diaphoresis , chills , agitation and lethargy Valium 20mg PO, Robaxin and Motrin were given @ 1055 with positive results
--- NOTE | 2018-08-07 13:00 | NUR ---
COWS 14 Patient presents with diaphoresis, chills, body aches, decreased appetite,tremors, stuffy nose, agitation and increased anxiety Subutex 4mg SL given
--- NOTE | 2018-08-07 13:20 | NUR ---
PRN Subutex Subutex 4mg SL given for COWS 14 Patient presents with diaphoresis, chills, body aches, decreased appetite, agitation and increased anxiety
--- NOTE | 2018-08-07 14:20 | NUR ---
PRN reassess Patient states Subutex 4mg SL was effective
[2018-08-07 16:00] VITALS: BP 105/59
--- NOTE | 2018-08-07 16:00 | NUR ---
COWS 14 CIWA 17 Patient presents with increased anxiety and irritability, restlessness, diaphoresis , chills , agitation and lethargy
--- NOTE | 2018-08-07 19:32 | NUR ---
End Of Shift Patient is a 23 yr old male who was admitted to [facility] on 08/05/18 for a medically supervised withdrawal from Benzo's and Opiates, he continues on a 3 day Valium/Subutex taper. PRN medications given this shift: Valium 20mg PO, Subutex 4mg SL, Robaxin and Motrin, he had a fluid intake of 1300ML, 3 voids and 1 BM, his last COWS was 14 and CIWA 17. He presents with extreme fatigue, lethargy, anhedonia, sensitivity to light and sound and irritability. Continue to follow MD plan of care, endorsed to greek professor.
[2018-08-07 20:00] VITALS: BP 120/69
--- NOTE | 2018-08-07 20:00 | NUR ---
START OF SHIFT Patient received lying in bed with eyes closed with respirations even and unlabored. Per endorsement, patient is detoxing from Xanax, Klonopin, heroin, and cocaine and is on a 3 day Valium and 3 day Subutext Taper. Last COWS is 11 and last CIWA is 14 at 2000. Upon assessment, patient awoke and was anxious, depressed, lethargic, and appeared disheveled. Patient is avoidant with conversation. No complaints of pain or distress. Will continue to monitor.
[2018-08-07] MEDS: QUETIAPINE FUMARATE 200 MG TABLET PO SCH (20:40)
[2018-08-07] MEDS: ARIPIPRAZOLE 5 MG TABLET PO SCH (20:40)
[2018-08-08] VITALS: BP 114/60
--- NOTE | 2018-08-08 | NUR ---
COWS=10, CIWA=12 Patient continues to be anxious, depressed and isolative. Patient noted to have tremors and avoids eye contact.
[2018-08-08 04:00] VITALS: BP 107/63
--- NOTE | 2018-08-08 04:00 | NUR ---
COWS=10, CIWA=11 Patient continues to be anxious, melancholic and is avoidant with conversation. Patient often is observed to be starting to the ceiling. Patient noted with tremors and verbalized feeling fatigue.
--- NOTE | 2018-08-08 07:20 | NUR ---
END OF SHIFT Patient is noted lying in bed with eyes closed and with even and unlabored respirations. No S/S of pain or c/o distress noted. No PRN medications given throughout shift. Patient continues to present with slight tremors, anxiety, and flat affect. Patient slept for 8 hours during the night. Last COWS is 10 and last CIWA is 11. Endorsed to oncoming AM nurse.
--- NOTE | 2018-08-08 07:30 | NUR ---
Start of shift note; Received report from night nurse. Patient is 23 year old male admitted on 08/05/18 for Benzodiazepine/ Opiate withdrawal. Patient was placed on 3 day Valium and 3 day Subutex taper, tolerating well. Patient is AOX4, appears anxious, agitated, complaining of muscle aches, tremors, generalized body aches, denies nausea, complains of stomach cramps.All safety measures secured. Will continue to monitor patient.
[2018-08-08 08:00] VITALS: BP 102/63
--- NOTE | 2018-08-08 08:00 | NUR ---
COWS/CIWA Assessment; Patient's current CIWA score is 11 and COWS score of 10 manifested by anxiety, guarded, patient is complaining of muscle aches, generalized discomfort, fatigue, generalized body aches, stomach cramps. Will continue to monitor patient.
[2018-08-08] MEDS: GABAPENTIN 300 MG CAPSULE PO SCH ×3 (08:53→16:58)
[2018-08-08] MEDS: buPROPion XL 150 MG TAB.SR.24H PO SCH (08:53)
[2018-08-08] MEDS: DIAZEPAM 5 MG TABLET PO SCH ×3 (08:53→21:58)
[2018-08-08] MEDS: MULTIVITAMINS,THERAPEUTIC TABLET PO SCH (08:53)
[2018-08-08] MEDS: BUPRENORPHINE HCL 2 MG TAB.SUBL SL SCH ×3 (08:53→21:58)
[2018-08-08 12:00] VITALS: BP 106/60
--- NOTE | 2018-08-08 12:00 | NUR ---
COWS/CIWA Assessment; Patient CIWA score continues to be 11 and COWS score of 10 manifested by anxiety, guarded, patient is complaining of muscle aches, generalized discomfort, fatigue, generalized body aches, stomach cramps. Will continue to monitor patient.
--- NOTE | 2018-08-08 14:18 | NUR ---
Therapist prompted client to attend group therapy.
[2018-08-08 16:00] VITALS: BP 111/63
--- NOTE | 2018-08-08 16:00 | NUR ---
COWS/CIWA Assessment; Patient CIWA score continues to be 10 and COWS score of 10 manifested by anxiety, guarded, patient is complaining of muscle aches, generalized discomfort, fatigue, generalized body aches, stomach cramps. Will continue to monitor patient.
--- NOTE | 2018-08-08 18:28 | NUR ---
End of shift note; Patient is AXO4, presented with anxiety, poor eye contact, ,guarded, patient is complaining of muscle aches, generalized discomfort, fatigue. Patient remained compliant with treatment plan and medication regime. Patient participated in group activities and therapies. Medications were effective in reducing withdrawal symptoms. Patient's last COWS 10 and CIWA score is 10 at 1600. All safety measures secured. Met all needs.
--- NOTE | 2018-08-08 19:30 | NUR ---
START OF SHIFT Received 23 year old male patient admitted on 08/05/18 for Benzodiazepine and Opiate withdrawal. Pt is alert and oriented x4. Pt noted with anxiety, fatigue and restlessness. Pt is receiving a 3 day Valium and 3 day Subutex taper and tolerating well. He did not receive or request PRN medications. Last COWS:10, CIWA:10. Breathing is even and unlabored, safety measures in place. Will continue to monitor.
[2018-08-08 20:00] VITALS: BP 105/62
--- NOTE | 2018-08-08 20:00 | NUR ---
COWS/CIWA Pt complains of chills, sweats, body aches, anxiety, agitation, and restlessness. COWS:9, CIWA:11 prior to 2100 medication administration. Will continue to monitor.
[2018-08-08] MEDS: ARIPIPRAZOLE 5 MG TABLET PO SCH (21:58)
[2018-08-08] MEDS: QUETIAPINE FUMARATE 200 MG TABLET PO SCH (21:58)
--- NOTE | 2018-08-09 | NUR ---
VITALS REFUSED, COWS/CIWA DEFERRED 0000 vitals refused. COWS and CIWA deferred d/t pt lying in bed with eyes closed and is noted to be asleep. Breathing is even and unlabored, safety measures in place. Will continue to monitor.
--- NOTE | 2018-08-09 04:00 | NUR ---
VITALS REFUSED, COWS/CIWA DEFERRED 0400 vitals refused. COWS and CIWA deferred d/t pt lying in bed with eyes closed and is noted to be asleep. Breathing is even and unlabored, safety measures in place. Will monitor.
--- NOTE | 2018-08-09 07:00 | NUR ---
END OF SHIFT Pt is a 23 year old male patient admitted on 08/05/18 for Benzodiazepine and Opiate withdrawal. He remains alert and oriented x4. He was noted with anxiety, fatigue, chills, body aches and restlessness. He continues on a 3 day Valium and 3 day Subutex taper and tolerating well. Pt did not receive or request PRN medications. He slept a total of 8 hrs, 1200mL, Void: x1, BM:0, Last COWS:9, CIWA:11 at 2000. Breathing is even and unlabored, safety measures in place. Endorsed to AM shift.
--- NOTE | 2018-08-09 07:15 | NUR ---
Start Of Shift Patient is a 23 yr old male who was admitted to [facility] on 08/05/18 for a medically supervised withdrawal from Benzodiazepines and Opiates, he continues on a 3 day Valium and 3 day Subutex taper. No PRN medications were given on PM shift, he slept for 8 hours and last COWS was 9 and CIWA 11. Currently he is in bed asleep, breathing even and unlabored. Continue to follow MD santillan of care and offer support and encouragement.
[2018-08-09 08:00] VITALS: BP 108/66
[2018-08-09] MEDS ORDERED: BUPRENORPHINE HCL 2 MG TAB.SUBL SL SCH (09:00)
[2018-08-09] MEDS: DIAZEPAM 5 MG TABLET PO SCH ×2 (09:45→22:10)
[2018-08-09] MEDS: GABAPENTIN 300 MG CAPSULE PO SCH ×3 (09:45→16:33)
[2018-08-09] MEDS: buPROPion XL 150 MG TAB.SR.24H PO SCH (09:45)
[2018-08-09] MEDS: MULTIVITAMINS,THERAPEUTIC TABLET PO SCH (09:45)
--- NOTE | 2018-08-09 09:45 | NUR ---
COWS 8 CIWA 13 Patient presents with lethargy, irritability, decreased appetite, agitation, insomnia and he has a flat angry affect Scheduled Valium 5mg PO and Subutex 2mg SL given
[2018-08-09 12:00] VITALS: BP 112/64
--- NOTE | 2018-08-09 12:30 | NUR ---
COWS 10 CIWA 14 Patient presents with lethargy, irritability, decreased appetite, agitation, insomnia, myalgias and he has a flat angry affect Scheduled Gabapentin 600mg PO given
--- NOTE | 2018-08-09 12:36 | NUR ---
Therapist prompted client to attend group therapy sessions.
[2018-08-09 16:00] VITALS: BP 117/67
[2018-08-09] MEDS: METHOCARBAMOL 750 MG TABLET PO PRN (16:33)
[2018-08-09] MEDS: HYDROXYZINE PAMOATE 25 MG CAPSULE PO PRN (16:33)
--- NOTE | 2018-08-09 16:35 | NUR ---
COWS 10/ CIWA 14 Patient presents with generalized body aches and increased anxiety and irritability Vistaril 50mg PO PRN and Robaxin 750mg PO PRN given
--- NOTE | 2018-08-09 16:35 | NUR ---
PRN Robaxin 750mg PO given for generalized body aches 04/21 Vistaril 50mg PO given for increased anxiety
--- NOTE | 2018-08-09 17:35 | NUR ---
PRN Reassess Patient states that medications somewhat effective, he still feels anxious and asks for Valium, no PRN available at this time
--- NOTE | 2018-08-09 18:56 | NUR ---
End Of Shift Patient is a 23 yr old male who was admitted to [facility] on 08/05/18 for a medically supervised withdrawal from Benzodiazepines and Opiates, he continues on a 3 day Valium and 3 day Subutex taper and today is day 3. PRN medications given on this shift: Robaxin and Vistaril. His withdrawal symptoms include lethargy, generalized body aches, irritability, agitation and restlessness. He had a fluid intake of 1796 ML, 5 Voids and 0 BM, His last COWS was 10 and CIWA 14 @ 1600. He has not attended groups today and is isolating in his room despite encouragement. Continue to follow MD plan of care and offer support and encouragement. Endorsed to cook night.
--- NOTE | 2018-08-09 19:30 | NUR ---
Start of shift Patient is a 23 year old male admitted on 08/05/2018. Patient is here at [facility] for medically supervised Benzos and Opioid withdrawal. Patient is on a 3 day Valium and 3 day Subutex. Patients last CIWA is 14 and COWS is 10. Patient is on Fall and Seizure precautions. Per endorsement patient has been participating in group and had PRN Robaxin and Vistaril. Upon round patient was noted in room, he appeared agitated and anxious. Reviewed 2100 medications with patient and he verbalized understanding. Breathing is even and unlabored, no s/s of distress. Safety measures in place, bed locked in low position, side rails up x2 and call light within reach. Will continue to monitor.
[2018-08-09 20:00] VITALS: BP 121/78
--- NOTE | 2018-08-09 20:00 | NUR ---
CIWA and COWS Assessment Patient is presenting with the following s/s of withdrawal: mild sweats, tremors, anxiety, mild body aches, agitation, pins and needles sensation. Patients CIWA is 14 and COWS is 10. Safety measures in place, will continue to monitor.
[2018-08-09] MEDS: QUETIAPINE FUMARATE 200 MG TABLET PO SCH (22:09)
[2018-08-09] MEDS: CLONIDINE HCL 0.1 MG TABLET PO PRN (22:09)
[2018-08-09] MEDS: ARIPIPRAZOLE 5 MG TABLET PO SCH (22:09)
--- NOTE | 2018-08-09 22:10 | NUR ---
PRN Clonidine Patient was experiencing anxiety and agitation. Administered PRN Clonidine and patient tolerated well. Will continue to monitor for s/s of adverse reactions. Breathing is even and unlabored. Safety measures in place.
--- NOTE | 2018-08-09 23:10 | NUR ---
PRN Clonidine Reassessment Patient was noted in bed resting watching TV, medication was noted to be effective. Breathing is even and unlabored. Safety measures in place. Will continue to monitor.
[2018-08-10] VITALS: BP 118/81
--- NOTE | 2018-08-10 | NUR ---
CIWA and COWS Deferred Patient was noted in bed resting with eyes closed, breathing was even and unlabored. Per protocol CIWA and COWS is to be assessed while awake. Safety measures in place. Will continue to monitor.
[2018-08-10 04:00] VITALS: BP 106/69
--- NOTE | 2018-08-10 07:23 | NUR ---
Start Of Shift Patient is a 23 yr old male who was admitted to [facility] on 08/05/18 for a medically supervised withdrawal from Benzodiazepines and Opiates, he has completed a 3 day Valium and 3 day Subutex taper. PRN Clonidine was given on PM shift, he slept for 7+ hours and last COWS was 10 and CIWA 14. Currently he is in bed asleep, breathing even and unlabored. Continue to follow MD santillan of care and offer support and encouragement.
--- NOTE | 2018-08-10 07:38 | NUR ---
End of shift Patient is a 23 year old male admitted on 08/05/2018. Patient is here at [facility] for medically supervised Benzos and Opioid withdrawal. Patient is on a 3 day Valium and 3 day Subutex. Patients last CIWA is 14 and COWS is 10. Patient is on Fall and Seizure precautions. Patient slept for 7 hours and had a total intake 1,600ml. Patient voided x3 and had one bowel movement during this shift. Breathing is even and unlabored. Safety measures in place, bed locked in low position, side rails up x2 and call light within reach. Will endorse to day shift.
[2018-08-10 08:00] VITALS: BP 85/42
[2018-08-10] MEDS: GABAPENTIN 300 MG CAPSULE PO SCH ×3 (09:19→16:32)
[2018-08-10] MEDS: buPROPion XL 150 MG TAB.SR.24H PO SCH (09:19)
[2018-08-10] MEDS: IBUPROFEN 400 MG TABLET PO PRN (09:19)
[2018-08-10] MEDS: MULTIVITAMINS,THERAPEUTIC TABLET PO SCH (09:19)
[2018-08-10] MEDS: HYDROXYZINE PAMOATE 25 MG CAPSULE PO PRN ×3 (09:20→22:34)
[2018-08-10] MEDS: METHOCARBAMOL 750 MG TABLET PO PRN ×2 (09:20→16:33)
--- NOTE | 2018-08-10 09:20 | NUR ---
COWS/CIWA / PRN COWS 8 CIWA 14 Patient complains of myalgias, restlessness, lethargy, stuffy nose , he is irritable and has a flat affect PRN Motrin, Robaxin and Vistaril given
--- NOTE | 2018-08-10 10:20 | NUR ---
PRN Reassess Patient has gone back to sleep, in bed with eyes closed, breathing even and unlabored
[2018-08-10 12:00] VITALS: BP 93/51
--- NOTE | 2018-08-10 12:00 | NUR ---
COWS 8 CIWA 13 Patient presents with lethargy, irritability, decreased appetite, agitation, insomnia, myalgias and he has a flat affect
[2018-08-10] MEDS ORDERED: METH-406 PO (13:47)
[2018-08-10] MEDS ORDERED: HYDR-3895 PO (13:47)
[2018-08-10] MEDS ORDERED: CLON0.1T14 PO (13:47)
[2018-08-10 16:00] VITALS: BP 109/53
--- NOTE | 2018-08-10 16:15 | NUR ---
COWS 9 CIWA 13/ PRN Medication Patient presents with lethargy, irritability, decreased appetite, agitation, insomnia, myalgias and he has a flat affect PRN Clonidine 0.1mg PO, Vistaril 50mg PO and Robaxin 750mg PO given
[2018-08-10] MEDS: CLONIDINE HCL 0.1 MG TABLET PO PRN ×2 (16:32→22:34)
--- NOTE | 2018-08-10 17:15 | NUR ---
PRN Reassess Patient is interacting with his peers, anxiety has decreased , medications effective
--- NOTE | 2018-08-10 19:08 | NUR ---
End Of Shift Patient is a 23 yr old male who was admitted to [facility] on 08/05/18 for a medically supervised withdrawal from Benzodiazepines and Opiates, he has completed a 3 day Valium and 3 day Subutex taper and will be discharged in the AM to [facility] . PRN medications given on this shift: Robaxin x2 , Vistaril x2, Motrin and Clonidine . His withdrawal symptoms include lethargy, generalized body aches, irritability, agitation and restlessness. He had a fluid intake of 2100 ML, 2 Voids and 0 BM, His last COWS was 9 and CIWA 13 @ 1600. He has attended groups today and is interacting with his peers. Continue to follow MD plan of care and offer support and encouragement. Endorsed to slot shift supervisor.
--- NOTE | 2018-08-10 19:43 | NUR ---
START OF SHIFT NOTE Rcvd report from outgoing nurse. Pt is a 23 y/o male A/O to person, place, time, and purpose. Pt was admitted for medically supervised withdrawal from Benzodiazepines and Opiates. Pt completed a 3 day Valium and Subutex taper. Pt is being discharged on 08/12. Pt has been presenting w/ anxiety, restlessness, flat affect, body aches, and runny nose. PRN Robaxin x2, Vistaril x2, Clonidine, and Motrin were given and noted effective by outgoing nurse. Last CIWA 13 and COWS 9 @ 1600. Call light is within reach. Pt will continue to be monitored and needs met.
[2018-08-10 20:04] VITALS: BP 125/74
--- NOTE | 2018-08-10 20:05 | NUR ---
CIWA AND COWS ASSESSMENT CIWA 12 and COWS 9. Pt has been presenting w/ anxiety, restlessness, flat affect, body aches, and runny nose. V/S: T:98.1, P:91, RR:17, SPO2:100, BP:125/74.
[2018-08-10] MEDS: diphenhydrAMINE 50 MG CAPSULE PO PRN (22:34)
[2018-08-10] MEDS: ARIPIPRAZOLE 5 MG TABLET PO SCH (22:34)
[2018-08-10] MEDS: QUETIAPINE FUMARATE 200 MG TABLET PO SCH (22:34)
--- NOTE | 2018-08-10 22:34 | NUR ---
PRN BENADRYL, CLONIDINE, AND VISTARIL ADMINISTRATION Benadryl 50mg for sleep, Clonidine 0.1mg for anxiety, and Vistaril for anxiety were given. Will reassess pt in 1 hr.
--- NOTE | 2018-08-10 23:34 | NUR ---
PRN BENADRYL, CLONIDINE, AND VISTARIL REASSESSMENT Pt is in bed w/ his eyes closed. Pt's respirations are unlabored and even.
--- NOTE | 2018-08-11 00:03 | NUR ---
CIWA AND COWS DEFERRED. V/S REFUSED Pt is in bed w/ his eyes closed. Pt's respirations are unlabored and even.
--- NOTE | 2018-08-11 04:04 | NUR ---
CIWA AND COWS DEFERRED, V/S REFUSED Pt is in bed w/ his eeys closed. Pt's respirations are unlabored and even.
--- NOTE | 2018-08-11 07:15 | NUR ---
END OF SHIFT NOTE Endorsed pt to oncoming nurse. Pt is a 23 y/o male A/O to person, place, time, and purpose. Pt was admitted for medically supervised withdrawal from Benzodiazepines and Opiates. Pt completed a 3 day Valium and Subutex taper. Pt is being discharged on 08/12. Pt continues presenting w/ anxiety, restlessness, flat affect, body aches, and runny nose. Pt denies any S/I or H/I. PRN Benadryl 50mg, Vistaril 50mg, and Clonidine 0.1mg were given and noted effective. Pts fluid intake was 2091ml and he slept for 9hrs. Last CIWA 12 and COWS 9 @ 1999. Call light is within reach.
[2018-08-11 08:00] VITALS: BP 101/54
--- NOTE | 2018-08-11 08:00 | NUR ---
Start of Shift Notes: Received endorsement from night nurse. Patient is a 23 year old male admitted for BZO and opiate withdrawal. He completed a 4-day Ativan and 3-day Subutex taper successfully. He will be discharging today to a sober living facility. Per night nurse, patient was given PRN Benadryl, Clonidine and Vistaril during the night. Last COWS 9 and CIWA 12. Slept for a total of 9 hours. Received patient in his room. Awake, alert and verbally responsive. Oriented x 4. Complains of anxiety, sweats and chills. Denies S/I or H/I noted. No AV hallucinations noted. COWS 9/CIWA 10 at this time. Educated patient on the discharge process. Verbalized good understanding. All needs met and attended. Will continue to monitor closely.
[2018-08-11] MEDS ORDERED: DIAZEPAM 5 MG TABLET PO ONE (09:00)
[2018-08-11] MEDS: buPROPion XL 150 MG TAB.SR.24H PO SCH (09:21)
[2018-08-11] MEDS: GABAPENTIN 300 MG CAPSULE PO SCH (09:21)
[2018-08-11] MEDS: MULTIVITAMINS,THERAPEUTIC TABLET PO SCH (09:21)
--- NOTE | 2018-08-11 09:31 | NUR ---
Discharged: VS stable. COWS 9/CIWA 10. Denies S/I or H/I. No AV hallucinations noted. Alert and oriented x 4. Patient education provided regarding his discharge instructions. He verbalized good understanding. Education provided regarding his prescriptions as well. All clothing, valuables were returned to the patient. He did not bring home medications All necessary dc paperwork were returned to the patient and placed inside blue and black duffel bag. All needs met and attended. Patient was discharged at this time.
== END 2018-08-11 09:31 | disposition home or self-care (01) | DRG 895 ==
LOC: SRC 22:36
PROVIDERS: ADMIT Family Medicine Addiction Medicine; ATTEND Family Medicine Addiction Medicine
PROC: HZ2ZZZZ Detoxification Services for Substance Abuse Treatment (ICD-10-PCS; principal; 2018-08-05)
PROC: HZ41ZZZ Group Counseling for Substance Abuse Treatment, Behavioral (ICD-10-PCS; 2018-08-08)
PROC: HZ31ZZZ Individual Counseling for Substance Abuse Treatment, Behavioral (ICD-10-PCS; 2018-08-08)
DX: F11.23 Opioid dependence with withdrawal (principal); F31.60 Bipolar disorder, current episode mixed, unspecified; F17.210 Nicotine dependence, cigarettes, uncomplicated; Z59.0 Homelessness; F13.230 Sedative, hypnotic or anxiolytic dependence with withdrawal, uncomplicated; F14.10 Cocaine abuse, uncomplicated; F41.1 Generalized anxiety disorder; F90.9 Attention-deficit hyperactivity disorder, unspecified type; E16.2 Hypoglycemia, unspecified; B19.20 Unspecified viral hepatitis C without hepatic coma
CPT/HCPCS: 36415; 70030-TC; 80307; 80324; 80346; 80349; 80361; 83690; 83735; 84443; 85025; 86592; 86705; 86803; 87340; 87806; G0480; Q0163